=== PATIENT | male | born 1930 | race Caucasian/White ===

== ENCOUNTER 2016-10-31 14:46 | Inpatient (IN) | payer MEDICARE, BC ==
--- NOTE | 2016-10-31 15:11 | ED ---
General Adult HPI - General Chief complaint: Weakness Stated complaint: no appetite/tired Time Seen by Provider: 10/31/16 14:50 Source: patient, family, RN notes reviewed Mode of arrival: wheelchair Limitations: no limitations - History of Present Illness Initial comments: This is an 86-year-old male with past medical history significant for COPD and congestive heart failure. Patient was recently placed on steroids but has been off it for about 6-7 days. Patient comes in today because since Tuesday he's been feeling extremely weak and fatigued. Patient denies any pain. Patient denies headache patient denies numbness weakness. Patient denies any chest pain or palpitations. Patient denies any shortness of breath difficulty breathing. Patient denies abdominal pain patient denies nausea vomiting diarrhea. Patient denies any dysuria but he states there has been some urinary frequency. Patient denies any urgency. Patient denies any recent injury or trauma. Patient denies any new medications. Patient denies any fever chills or cough. - Related Data Home Medications Medication Instructions Recorded Confirmed Atenolol [Tenormin] 25 mg PO DAILY 12/09/14 10/31/16 Budesonide [Pulmicort] 0.5 mg INHALATION RT-BID 12/09/14 10/31/16 Budesonide-Formot 160-4.5 Mcg 2 puff INHALATION RT-BID 12/09/14 10/31/16 [Symbicort 160-4.5 Mcg Inhaler] Montelukast [Singulair] 10 mg PO HS 12/09/14 10/31/16 Omeprazole [PriLOSEC] 20 mg PO AC-BRKFST 12/09/14 10/31/16 Pravastatin Sodium [Pravachol] 80 mg PO HS 12/09/14 10/31/16 Tamsulosin [Flomax] 0.4 mg PO DAILY 12/09/14 10/31/16 Areds2 1 tab PO BID 10/31/16 10/31/16 Ipratropium Nebulized [Atrovent 0.5 mg INHALATION RT-BID 10/31/16 10/31/16 Nebulized] Lisinopril [Zestril] 5 mg PO HS 10/31/16 10/31/16 predniSONE See Taper PO DAILY 10/31/16 10/31/16 Allergies Allergy/AdvReac Type Severity Reaction Status Date / Time No Known Allergies Allergy Verified 10/31/16 15:27 Review of Systems ROS Statement: Those systems with pertinent positive or pertinent negative responses have been documented in the HPI. ROS Other: All systems not noted in ROS Statement are negative. Past Medical History Past Medical History: COPD, GERD/Reflux, Hypertension, Myocardial Infarction ([place] ) Additional Past Medical History / Comment(s): macular degeneration History of Any Multi-Drug Resistant Organisms: None Reported Past Surgical History: Hernia Repair Past Psychological History: No Psychological Hx Reported Smoking Status: Never smoker Past Alcohol Use History: None Reported Past Drug Use History: None Reported General Exam - General Exam Comments Initial Comments: GENERAL: Patient is well-developed and well-nourished. Patient is nontoxic and well- hydrated and is in no acute distress. ENT: Neck is soft and supple. No significant lymphadenopathy is noted. Oropharynx is clear. Moist mucous membranes. Neck has full range of motion without eliciting any pain. EYES: The sclera were anicteric and conjunctiva were pink and moist. Extraocular movements were intact and pupils were equal round and reactive to light. Eyelids were unremarkable. PULMONARY: Unlabored respirations. Good breath sounds bilaterally. No audible rales rhonchi or wheezing was noted. CARDIOVASCULAR: Patient has an irregular heartbeat. ABDOMEN: Soft and nontender with normal bowel sounds. No palpable organomegaly was noted. There is no palpable pulsatile mass. SKIN: Skin is clear with no lesions or rashes and otherwise unremarkable. NEUROLOGIC: Patient is alert and oriented x3. Cranial nerves II through XII are grossly intact. Motor and sensory are also intact. Normal speech, volume and content. Symmetrical smile. MUSCULOSKELETAL: Normal extremities with adequate strength and full range of motion. Patient has 1+ edema. LYMPHATICS: No significant lymphadenopathy is noted PSYCHIATRIC: Normal psychiatric evaluation. Normal interpersonal interactions appears functionally intact in deals appropriately with others. No signs of depression. No signs of anxiety. No delusions. No hallucinations. Limitations: no limitations Course Vital Signs 10/31/16 10/31/16 10/31/16 14:51 15:10 15:18 Temperature 98.6 F 100.4 F H Pulse Rate 88 Respiratory 20 20 Rate Blood Pressure 151/75 O2 Sat by Pulse 90 L Oximetry 10/31/16 15:54 Temperature Pulse Rate 87 Respiratory 20 Rate Blood Pressure 146/78 O2 Sat by Pulse 96 Oximetry Medical Decision Making - Medical Decision Making EKG shows possible flutter at 80 bpm QRS is 106 QT interval 36 QTC is 467. There does not appear to be any ST segment elevation or depression - Lab Data Result diagrams: 10/31/16 15:14 10/31/16 15:14 Lab Results 10/31/16 10/31/16 10/31/16 Range/Units 15:14 15:14 15:14 WBC 20.8 H (3.8-10.6) k/uL RBC 4.47 (4.30-5.90) m/uL Hgb 14.3 (13.0-17.5) gm/dL Hct 42.1 (39.0-53.0) % MCV 94.1 (80.0-100.0) fL MCH 32.1 (25.0-35.0) pg MCHC 34.1 (31.0-37.0) g/dL RDW 15.3 (11.5-15.5) % Plt Count 151 (150-450) k/uL Neutrophils % 83 % Lymphocytes % 12 % Monocytes % 4 % Eosinophils % 0 % Basophils % 0 % Neutrophils # 17.2 H (1.3-7.7) k/uL Lymphocytes # 2.4 (1.0-4.8) k/uL Monocytes # 0.8 (0-1.0) k/uL Eosinophils # 0.0 (0-0.7) k/uL Basophils # 0.0 (0-0.2) k/uL PT (9.0-12.0) sec INR (<1.1) APTT (22.0-30.0) sec Sodium 137 (137-145) mmol/L Potassium 4.4 (3.5-5.1) mmol/L Chloride 101 (98-107) mmol/L Carbon Dioxide 21 L (22-30) mmol/L Anion Gap 15 mmol/L BUN 18 (9-20) mg/dL Creatinine 0.79 (0.66-1.25) mg/dL Est GFR (MDRD) Af Amer >60 (>60 ml/min/1.73 sqM) Est GFR (MDRD) Non-Af >60 (>60 ml/min/1.73 sqM) Glucose 117 H (74-99) mg/dL Plasma Lactic Acid Chin[place] (0.7-2.0) mmol/L Calcium 8.6 (8.4-10.2) mg/dL Magnesium 1.7 (1.6-2.3) mg/dL Total Bilirubin 2.0 H (0.2-1.3) mg/dL AST 25 (17-59) U/L ALT 23 (21-72) U/L Alkaline Phosphatase 76 (38-126) U/L Total Creatine Kinase 134 (55-170) U/L CK-MB (CK-2) 1.8 (0.0-2.4) ng/mL CK-MB (CK-2) Rel Index 1.3 Troponin I 0.030 (0.000-0.034) ng/mL Total Protein 7.4 (6.3-8.2) g/dL Albumin 4.0 (3.5-5.0) g/dL TSH 2.070 (0.465-4.680) mIU/L Free T4 1.46 (0.78-2.19) ng/dL Urine Color Urine Appearance (Clear) Urine pH (5.0-8.0) Ur Specific Bee (1.001-1.035) Urine Protein (Negative) Urine Glucose (UA) (Negative) Urine Ketones (Negative) Urine Blood (Negative) Urine Nitrite (Negative) Urine Bilirubin (Negative) Urine Urobilinogen (<2.0) mg/dL Ur Leukocyte Esterase (Negative) Urine RBC (0-5) /hpf Urine WBC (0-5) /hpf Ur Squamous Epith Cells (0-4) /hpf Urine Mucus (None) /hpf 10/31/16 10/31/16 10/31/16 Range/Units 15:14 15:14 15:14 WBC (3.8-10.6) k/uL RBC (4.30-5.90) m/uL Hgb (13.0-17.5) gm/dL Hct (39.0-53.0) % MCV (80.0-100.0) fL MCH (25.0-35.0) pg MCHC (31.0-37.0) g/dL RDW (11.5-15.5) % Plt Count (150-450) k/uL Neutrophils % % Lymphocytes % % Monocytes % % Eosinophils % % Basophils % % Neutrophils # (1.3-7.7) k/uL Lymphocytes # (1.0-4.8) k/uL Monocytes # (0-1.0) k/uL Eosinophils # (0-0.7) k/uL Basophils # (0-0.2) k/uL PT 11.9 (9.0-12.0) sec INR 1.2 (<1.1) APTT 24.6 (22.0-30.0) sec Sodium (137-145) mmol/L Potassium (3.5-5.1) mmol/L Chloride (98-107) mmol/L Carbon Dioxide (22-30) mmol/L Anion Gap mmol/L BUN (9-20) mg/dL Creatinine (0.66-1.25) mg/dL Est GFR (MDRD) Af Amer (>60 ml/min/1.73 sqM) Est GFR (MDRD) Non-Af (>60 ml/min/1.73 sqM) Glucose (74-99) mg/dL Plasma Lactic Acid [place] 1.6 (0.7-2.0) mmol/L Calcium (8.4-10.2) mg/dL Magnesium (1.6-2.3) mg/dL Total Bilirubin (0.2-1.3) mg/dL AST (17-59) U/L ALT (21-72) U/L Alkaline Phosphatase (38-126) U/L Total Creatine Kinase (55-170) U/L CK-MB (CK-2) (0.0-2.4) ng/mL CK-MB (CK-2) Rel Index Troponin I (0.000-0.034) ng/mL Total Protein (6.3-8.2) g/dL Albumin (3.5-5.0) g/dL TSH (0.465-4.680) mIU/L Free T4 (0.78-2.19) ng/dL Urine Color Yellow Urine Appearance Clear (Clear) Urine pH 6.0 (5.0-8.0) Ur Specific Bee 1.015 (1.001-1.035) Urine Protein 2+ H (Negative) Urine Glucose (UA) Negative (Negative) Urine Ketones 1+ H (Negative) Urine Blood Moderate H (Negative) Urine Nitrite Negative (Negative) Urine Bilirubin Negative (Negative) Urine Urobilinogen 2.0 (<2.0) mg/dL Ur Leukocyte Esterase Negative (Negative) Urine RBC 3 (0-5) /hpf Urine WBC 2 (0-5) /hpf Ur Squamous Epith Cells <1 (0-4) /hpf Urine Mucus Rare H (None) /hpf Disposition Clinical Impression: Generalized weakness, Febrile illness, Leukocytosis Disposition: ADMITTED IP TO THIS HOSP Referrals: Seth Norman MD [Primary Care Provider] - 1-2 days Time of Disposition: 16:30
[2016-10-31] MEDS ORDERED: ACETAMINOPHEN TAB 500 MG TAB PO STA (15:20)
[2016-10-31 15:23] LABS: Basophils % (A) 0 %; CH 32.1; CHCM 34.2; Eosinophils % (A) 0 %; HCT 42.1 % (39.0-53.0); HGB 14.3 gm/dL (13.0-17.5); Luc # (Auto) 0.31; Luc % (Auto) 2; Lymphocytes # (A) 2.4 k/uL (1.0-4.8); Lymphocytes % (A) 12 %; MCH 32.1 pg (25.0-35.0); MCHC 34.1 g/dL (31.0-37.0); MCV 94.1 fL (80.0-100.0); Mean Platelet Volume 8.1; Monocytes # (A) 0.8 k/uL (0-1.0); Monocytes % (A) 4 %; Neutrophils # (A) 17.2 k/uL (1.3-7.7); Neutrophils % (A) 83 %; RBC 4.47 m/uL (4.30-5.90); RDW 15.3 % (11.5-15.5); WBC 20.8 k/uL (3.8-10.6); WBC (Perox) 19.81
[2016-10-31 15:31] LABS: INR 1.2 (<1.1); Prothrombin Time 11.9 sec (9.0-12.0)
[2016-10-31 15:32] LABS: Partial Thromboplastin Time 24.6 sec (22.0-30.0)
[2016-10-31 15:35] LABS: ALT 23 U/L (21-72); AST 25 U/L (17-59); Alkaline Phosphatase 76 U/L (38-126); Anion Gap 15 mmol/L; Blood Urea Nitrogen 18 mg/dL (9-20); Calcium 8.6 mg/dL (8.4-10.2); Carbon Dioxide 21 mmol/L (22-30); Chloride 101 mmol/L (98-107); Glucose 117 mg/dL (74-99); Magnesium 1.7 mg/dL (1.6-2.3); Non-African American GFR(MDRD) >60 (>60 ml/min/1.73 sqM); Potassium 4.4 mmol/L (3.5-5.1); Sodium 137 mmol/L (137-145); Total Protein 7.4 g/dL (6.3-8.2)
[2016-10-31 15:53] LABS: Appearance,Urine Clear (Clear); Bilirubin,Urine Negative (Negative); Glucose,Urine (UA) Negative (Negative); Ketones,Urine 1+ (Negative); Leukocyte Esterase,Urine Negative (Negative); Mucus,Urine Rare /hpf; Nitrite,Urine Negative (Negative); Particle Count 3030; Protein,Urine 2+ (Negative); RBC,Urine 3 /hpf (0-5); Specific Gravity,Urine 1.015 (1.001-1.035); Squamous Epithelial Cell,Urine <1 /hpf (0-4); UA Billing (MACRO vs. MICRO) MICRO; WBC,Urine 2 /hpf (0-5)
[2016-10-31 15:55] LABS: Creatine Kinase MB 1.8 ng/mL (0.0-2.4); Troponin I 0.03 ng/mL (0.000-0.034)
--- NOTE | 2016-10-31 16:03 | XR ---
EXAMINATION TYPE: XR chest 2V DATE OF EXAM: 10/31/2016 COMPARISON: NONE HISTORY: Shortness of breath TECHNIQUE: Frontal and lateral views of the chest are obtained. FINDINGS: Scattered senescent parenchymal changes noted. Hyperinflation compatible with COPD. Chronic pleural p arenchymal thickening unchanged from prior study. No evidence for infiltrate. No evidence for atelectasis. Heart size is stable. Mediastinal structures are stable and grossly unremarkable. No evidence for hilar prominence. Degenerative changes dorsal spine. IMPRESSION: 1. No evidence for acute pulmonary disease.
[2016-10-31] MEDS ORDERED: LEVOFLOXACIN 750MG-D5W PMX 750 MG in DEXTROSE/WATER 1 150ML.BAG IVPB STA (16:28)
[2016-10-31] MEDS ORDERED: SODIUM CHLORIDE 0.9% 1,000 ML IV ONE (16:30)
[2016-10-31 17:45] VITALS: BMI 32.2
[2016-10-31] MEDS: BUDESONIDE 0.5 MG/2 ML NEBU INHALATION SCH (19:43)
[2016-10-31] MEDS ORDERED: IPRATROPIUM-ALBUTEROL 3 ML NEB INHALATION PRN (20:00)
[2016-10-31] MEDS: IPRATROPIUM-ALBUTEROL 3 ML NEB INHALATION SCH (20:16)
[2016-10-31] MEDS: HEPARIN SODIUM,PORCINE 5,000 UNIT/ML 1 ML VIAL SQ SCH (20:58)
[2016-10-31] MEDS: PANTOPRAZOLE 40 MG/10 ML VIAL IVP SCH (20:58)
[2016-10-31] MEDS ORDERED: PRAVASTATIN SODIUM 80 MG TAB PO SCH (21:00)
[2016-10-31] MEDS ORDERED: MONTELUKAST 10 MG TAB PO SCH (21:00)
[2016-10-31] MEDS ORDERED: LISINOPRIL 5 MG TAB PO SCH (21:00)
[2016-11-01 07:27] LABS: Basophils % (A) 0 %; CHCM 33.5; Eosinophils # (A) 0.1 k/uL (0-0.7); Eosinophils % (A) 0 %; HDW 2.26; HGB 12.8 gm/dL (13.0-17.5); Luc # (Auto) 0.27; Luc % (Auto) 2; Lymphocytes # (A) 1.8 k/uL (1.0-4.8); Lymphocytes % (A) 12 %; MCH 31.6 pg (25.0-35.0); MCHC 32.9 g/dL (31.0-37.0); MCV 95.9 fL (80.0-100.0); Mean Platelet Volume 8.1; Monocytes # (A) 0.7 k/uL (0-1.0); Monocytes % (A) 5 %; Neutrophils # (A) 12.6 k/uL (1.3-7.7); Neutrophils % (A) 82 %; RBC 4.07 m/uL (4.30-5.90); RDW 15.1 % (11.5-15.5); WBC 15.5 k/uL (3.8-10.6); WBC (Perox) 15.51
[2016-11-01] MEDS ORDERED: NON-FORMULARY DRUG (Omeprazole [Prilosec] 20 MG) PO SCH (07:30)
[2016-11-01 07:38] LABS: Anion Gap 11 mmol/L; Blood Urea Nitrogen 19 mg/dL (9-20); Carbon Dioxide 22 mmol/L (22-30); Chloride 103 mmol/L (98-107); Glucose 108 mg/dL (74-99); Non-African American GFR(MDRD) >60 (>60 ml/min/1.73 sqM); Potassium 3.9 mmol/L (3.5-5.1); Sodium 136 mmol/L (137-145)
[2016-11-01] MEDS: IPRATROPIUM-ALBUTEROL 3 ML NEB INHALATION SCH ×2 (07:40→11:35)
[2016-11-01] MEDS: BUDESONIDE 0.5 MG/2 ML NEBU INHALATION SCH (07:40)
[2016-11-01] MEDS: HEPARIN SODIUM,PORCINE 5,000 UNIT/ML 1 ML VIAL SQ SCH (08:03)
[2016-11-01] MEDS: PANTOPRAZOLE 40 MG/10 ML VIAL IVP SCH (08:03)
[2016-11-01] MEDS ORDERED: predniSONE 10 MG TAB PO SCH (09:00)
[2016-11-01] MEDS ORDERED: ATENOLOL 25 MG TAB PO SCH (09:00)
[2016-11-01] MEDS ORDERED: TAMSULOSIN 0.4 MG CAP.ER.24H PO SCH (09:00)
[2016-11-01 09:17] VITALS: BP 114/57; RESP 16; TEMP 99.6
[2016-11-01 11:54] VITALS: PULSE 84
--- NOTE | 2016-11-01 13:52 | P.DS ---
Providers Date of admission: 10/31/16 16:30 Expected date of discharge: 11/01/16 Attending physician: Favio Cabrera Primary care physician: Seth Norman [facility] Course: this very pleasant gentleman admitted feeling weak and tired rundown not feeling well, making urine. Patient just completed a course of steroids for COPD exacerbation. Patient probably had an element of myopathy from steroids as he was weak in his muscles not feeling much better. Urine output had decreased. Coming doing much better. Today patient with his nephew. Critically get out of the bathroom eating rather well very keen to go home.patient clinically was felt to be dehydrated. Did well with IV fluids. White count was felt to be from an element of dehydration and steroids coming down.care was discussed in detail with the patient and his nephew the bedside questions were answered. On examination: Lungs-decreased breath sounds no crackles Psych-AO 3 Cardiovascular-first seconds are normal Discharge planning more than 35 minutes Plan - Discharge Summary New Discharge Prescriptions: Continue Montelukast [Singulair] 10 mg PO HS Budesonide [Pulmicort] 0.5 mg INHALATION RT-BID Tamsulosin [Flomax] 0.4 mg PO DAILY Pravastatin Sodium [Pravachol] 80 mg PO HS Atenolol [Tenormin] 25 mg PO DAILY Omeprazole [PriLOSEC] 20 mg PO AC-BRKFST Budesonide-Formot 160-4.5 Mcg [Symbicort 160-4.5 Mcg Inhaler] 2 puff INHALATION RT-BID Areds2 1 tab PO BID Ipratropium Nebulized [Atrovent Nebulized] 0.5 mg INHALATION RT-BID Lisinopril [Zestril] 5 mg PO HS Discontinued predniSONE See Taper PO DAILY Discharge Medication List Atenolol [Tenormin] 25 mg PO DAILY 12/09/14 [History] Budesonide [Pulmicort] 0.5 mg INHALATION RT-BID 12/09/14 [History] Budesonide-Formot 160-4.5 Mcg [Symbicort 160-4.5 Mcg Inhaler] 2 puff INHALATION RT-BID 12/09/14 [History] Montelukast [Singulair] 10 mg PO HS 12/09/14 [History] Omeprazole [PriLOSEC] 20 mg PO AC-BRKFST 12/09/14 [History] Pravastatin Sodium [Pravachol] 80 mg PO HS 12/09/14 [History] Tamsulosin [Flomax] 0.4 mg PO DAILY 12/09/14 [History] Areds2 1 tab PO BID 10/31/16 [History] Ipratropium Nebulized [Atrovent Nebulized] 0.5 mg INHALATION RT-BID 10/31/16 [ History] Lisinopril [Zestril] 5 mg PO HS 10/31/16 [History] Follow up Appointment(s)/Referral(s): Seth Norman MD [Primary Care Provider] - 3 Days Patient Instructions/Handouts: Type 2 Diabetes in Adults (DC) Discharge Disposition: HOME SELF-CARE
[2016-11-01] MEDS ORDERED: LEVOFLOXACIN 750MG-D5W PMX 750 MG in DEXTROSE/WATER 1 150ML.BAG IVPB SCH (17:00)
[2016-11-02] MEDS ORDERED: PANTOPRAZOLE 40 MG TABLET PO SCH (07:30)
== END 2016-11-01 14:46 | disposition home or self-care (01) | DRG 641 ==
LOC: EC 14:46 → 4MS4W 16:30
PROVIDERS: ADMIT Hospitalist; ATTEND Hospitalist
DX: E86.0 Dehydration (principal); G72.0 Drug-induced myopathy; I11.0 Hypertensive heart disease with heart failure; I50.9 Heart failure, unspecified; J44.9 Chronic obstructive pulmonary disease, unspecified; H35.30 Unspecified macular degeneration; I25.2 Old myocardial infarction; K21.9 Gastro-esophageal reflux disease without esophagitis; T38.0X5A Adverse effect of glucocorticoids and synthetic analogues, initial encounter; Z79.899 Other long term (current) drug therapy; Y92.009 Unspecified place in unspecified non-institutional (private) residence as the place of occurrence of the external cause
CPT/HCPCS: 36415; 71020; 80048; 80053; 81001; 82550; 82553; 83605; 83735; 84439; 84443; 84484; 85025; 85610; 85730; 87040; 87086; 93005; 94640; 99285

== ENCOUNTER 2016-11-09 11:18 | Inpatient (IN) | payer MEDICARE, BC ==
[2016-11-09] MEDS ORDERED: MAGNESIUM SULFATE-D5W PMX 1 GM in DEXTROSE/WATER 1 100ML.BAG IVPB STA (11:34)
[2016-11-09] MEDS ORDERED: methylPREDNISolone SOD SUCCI 125 MG/2 ML VIAL IV STA (11:34)
[2016-11-09] MEDS ORDERED: SODIUM CHLORIDE 0.9% 1,000 ML IV STA (11:34)
[2016-11-09] MEDS ORDERED: IPRATROPIUM-ALBUTEROL 3 ML NEB INHALATION STA (11:38)
--- NOTE | 2016-11-09 11:39 | ED ---
SOB HPI - General Stated Complaint: Low Oxygen Time Seen by Provider: 11/09/16 11:33 Source: patient, family, RN notes reviewed, old records reviewed - History of Present Illness Initial Comments: This is a 86-year-old male with a history of lung disease who barely started getting short of breath this evening when he got worse today he has a cough with minimal phlegm this is a fever this morning exertional dyspnea. His pulse ox at home was 73 his incentive spirometer was very low on his attempt to use at this morning. MD Complaint: shortness of breath, cough - Related Data Home Medications Medication Instructions Recorded Confirmed Atenolol [Tenormin] 25 mg PO DAILY 12/09/14 11/09/16 Budesonide [Pulmicort] 0.5 mg INHALATION RT-BID 12/09/14 11/09/16 Budesonide-Formot 160-4.5 Mcg 2 puff INHALATION RT-BID 12/09/14 11/09/16 [Symbicort 160-4.5 Mcg Inhaler] Montelukast [Singulair] 10 mg PO HS 12/09/14 11/09/16 Omeprazole [PriLOSEC] 20 mg PO AC-BRKFST 12/09/14 11/09/16 Pravastatin Sodium [Pravachol] 80 mg PO HS 12/09/14 11/09/16 Tamsulosin [Flomax] 0.4 mg PO DAILY 12/09/14 11/09/16 Ipratropium Nebulized [Atrovent 0.5 mg INHALATION RT-BID 10/31/16 11/09/16 Nebulized] Lisinopril [Zestril] 5 mg PO HS 10/31/16 11/09/16 Vit C/E/Zn/Coppr/Lutein/Zeaxan 1 cap PO BID 11/09/16 11/09/16 [Preservision Areds 2 Softgel] Allergies Allergy/AdvReac Type Severity Reaction Status Date / Time No Known Allergies Allergy Verified 11/09/16 13:58 Review of Systems ROS Statement: Those systems with pertinent positive or pertinent negative responses have been documented in the HPI. ROS Other: All systems not noted in ROS Statement are negative. Past Medical History Past Medical History: COPD, CVA/TIA, Diabetes Mellitus, Eye Disorder, GERD/ Reflux, Hyperlipidemia, Hypertension, Myocardial Infarction ([place]), Pneumonia, Respiratory Disorder Additional Past Medical History / Comment(s): macular degeneration, arthritis unknown type, heart cath with 2 stents approximately 2012, silent [place] Last Myocardial Infarction Date:: 2012 History of Any Multi-Drug Resistant Organisms: None Reported Past Surgical History: Heart Catheterization With Stent, Hernia Repair Past Anesthesia/Blood Transfusion Reactions: No Reported Reaction Date of Last Stent Placement:: 2012 Past Psychological History: No Psychological Hx Reported Smoking Status: Former smoker Past Alcohol Use History: Daily Additional Past Alcohol Use History / Comment(s): beer a day Past Drug Use History: None Reported - Past Family History Mother Family Medical History: Cancer General Exam - General Exam Comments Initial Comments: This is a well-developed well-nourished awake alert oriented 3 male General appearance: alert, anxious, in distress Head exam: Present: atraumatic, normocephalic, normal inspection Eye exam: Present: normal appearance, PERRL, EOMI. Absent: scleral icterus, conjunctival injection, periorbital swelling ENT exam: Present: mucous membranes dry Neck exam: Present: normal inspection. Absent: tenderness, meningismus, lymphadenopathy Respiratory exam: Present: respiratory distress, wheezes, accessory muscle use, decreased breath sounds Cardiovascular Exam: Present: regular rate, normal rhythm, normal heart sounds. Absent: systolic murmur, diastolic murmur, rubs, gallop, clicks GI/Abdominal exam: Present: soft, normal bowel sounds. Absent: distended, tenderness, guarding, rebound, rigid Extremities exam: Present: normal inspection, full ROM, normal capillary refill. Absent: tenderness, pedal edema, joint swelling, calf tenderness Back exam: Present: normal inspection Neurological exam: Present: alert, oriented X3, CN II-XII intact Psychiatric exam: Present: normal affect, normal mood Skin exam: Present: warm, dry, intact, normal color. Absent: rash Course Vital Signs 11/09/16 11/09/16 11/09/16 11:22 11:30 11:45 Temperature 100.8 F H Pulse Rate 99 Pulse Rate [ 86 87 Chemical Tester ] Respiratory 32 H 28 H 26 H Rate Blood Pressure 174/88 Blood Pressure 150/78 166/79 [Right Arm] O2 Sat by Pulse 71 L 97 99 Oximetry 11/09/16 11/09/16 11/09/16 11:48 12:00 12:15 Temperature Pulse Rate 89 97 Pulse Rate [ 83 89 Chemical Tester ] Respiratory 30 H 28 H Rate Blood Pressure Blood Pressure 148/70 164/74 [Right Arm] O2 Sat by Pulse 99 99 Oximetry 11/09/16 11/09/16 11/09/16 12:30 13:00 13:20 Temperature Pulse Rate Pulse Rate [ 87 Chemical Tester ] Respiratory 29 H 30 H Rate Blood Pressure Blood Pressure 160/74 [Right Arm] O2 Sat by Pulse 99 97 95 Oximetry 11/09/16 13:54 Temperature 99.8 F H Pulse Rate 85 Pulse Rate [ Chemical Tester ] Respiratory 15 Rate Blood Pressure 149/76 Blood Pressure [Right Arm] O2 Sat by Pulse 98 Oximetry - Reevaluation(s) Reevaluation #1: 11/09/16 14:36 Reevaluation patient reveals some improvement though he was not able tolerate nasal oxygen yet. He did develop hypoxemia when placed on nasal prongs. He was placed back on a mask. Medical Decision Making - Medical Decision Making I did discuss findings with patient family members as well as with Dr. Cabrera. Patient will be admitted for inpatient treatment of pneumonia and CHF. The initial lactic acid was within normal limits. - Lab Data Result diagrams: 11/09/16 11:40 11/09/16 11:40 Lab Results 11/09/16 11/09/16 11/09/16 Range/Units 11:40 11:40 11:40 WBC 13.7 H (3.8-10.6) k/uL RBC 3.93 L (4.30-5.90) m/uL Hgb 12.5 L (13.0-17.5) gm/dL Hct 36.4 L (39.0-53.0) % MCV 92.7 (80.0-100.0) fL MCH 31.7 (25.0-35.0) pg MCHC 34.2 (31.0-37.0) g/dL RDW 15.3 (11.5-15.5) % Plt Count 308 D (150-450) k/uL Neutrophils % 84 % Lymphocytes % 11 % Monocytes % 4 % Eosinophils % 0 % Basophils % 0 % Neutrophils # 11.5 H (1.3-7.7) k/uL Lymphocytes # 1.5 (1.0-4.8) k/uL Monocytes # 0.5 (0-1.0) k/uL Eosinophils # 0.0 (0-0.7) k/uL Basophils # 0.0 (0-0.2) k/uL PT (9.0-12.0) sec INR (<1.1) APTT (22.0-30.0) sec Sodium 139 (137-145) mmol/L Potassium 3.5 (3.5-5.1) mmol/L Chloride 98 (98-107) mmol/L Carbon Dioxide 24 (22-30) mmol/L Anion Gap 17 mmol/L BUN 15 (9-20) mg/dL Creatinine 0.71 (0.66-1.25) mg/dL Est GFR (MDRD) Af Amer >60 (>60 ml/min/1.73 sqM) Est GFR (MDRD) Non-Af >60 (>60 ml/min/1.73 sqM) Glucose 124 H (74-99) mg/dL Plasma Lactic Acid [place] (0.7-2.0) mmol/L Calcium 7.9 L (8.4-10.2) mg/dL Magnesium 1.8 (1.6-2.3) mg/dL Total Bilirubin 1.2 (0.2-1.3) mg/dL AST 108 H (17-59) U/L ALT 70 (21-72) U/L Alkaline Phosphatase 102 (38-126) U/L Total Creatine Kinase 73 (55-170) U/L CK-MB (CK-2) 1.1 (0.0-2.4) ng/mL CK-MB (CK-2) Rel Index 1.5 Troponin I 0.052 H* (0.000-0.034) ng/mL NT-Pro-B Natriuret Pep pg/mL Total Protein 6.7 (6.3-8.2) g/dL Albumin 3.2 L (3.5-5.0) g/dL Urine Color Urine Appearance (Clear) Urine pH (5.0-8.0) Ur Specific Hopkins (1.001-1.035) Urine Protein (Negative) Urine Glucose (UA) (Negative) Urine Ketones (Negative) Urine Blood (Negative) Urine Nitrite (Negative) Urine Bilirubin (Negative) Urine Urobilinogen (<2.0) mg/dL Ur Leukocyte Esterase (Negative) Urine RBC (0-5) /hpf Urine WBC (0-5) /hpf Urine Bacteria (None) /hpf Granular Casts (0) /lpf Urine Mucus (None) /hpf 11/09/16 11/09/16 11/09/16 Range/Units 11:40 11:40 11:40 WBC (3.8-10.6) k/uL RBC (4.30-5.90) m/uL Hgb (13.0-17.5) gm/dL Hct (39.0-53.0) % MCV (80.0-100.0) fL MCH (25.0-35.0) pg MCHC (31.0-37.0) g/dL RDW (11.5-15.5) % Plt Count (150-450) k/uL Neutrophils % % Lymphocytes % % Monocytes % % Eosinophils % % Basophils % % Neutrophils # (1.3-7.7) k/uL Lymphocytes # (1.0-4.8) k/uL Monocytes # (0-1.0) k/uL Eosinophils # (0-0.7) k/uL Basophils # (0-0.2) k/uL PT 13.4 H (9.0-12.0) sec INR 1.4 (<1.1) APTT 26.5 (22.0-30.0) sec Sodium (137-145) mmol/L Potassium (3.5-5.1) mmol/L Chloride (98-107) mmol/L Carbon Dioxide (22-30) mmol/L Anion Gap mmol/L BUN (9-20) mg/dL Creatinine (0.66-1.25) mg/dL Est GFR (MDRD) Af Amer (>60 ml/min/1.73 sqM) Est GFR (MDRD) Non-Af (>60 ml/min/1.73 sqM) Glucose (74-99) mg/dL Plasma Lactic Acid [place] 1.3 (0.7-2.0) mmol/L Calcium (8.4-10.2) mg/dL Magnesium (1.6-2.3) mg/dL Total Bilirubin (0.2-1.3) mg/dL AST (17-59) U/L ALT (21-72) U/L Alkaline Phosphatase (38-126) U/L Total Creatine Kinase (55-170) U/L CK-MB (CK-2) (0.0-2.4) ng/mL CK-MB (CK-2) Rel Index Troponin I (0.000-0.034) ng/mL NT-Pro-B Natriuret Pep 3260 pg/mL Total Protein (6.3-8.2) g/dL Albumin (3.5-5.0) g/dL Urine Color Urine Appearance (Clear) Urine pH (5.0-8.0) Ur Specific Hopkins (1.001-1.035) Urine Protein (Negative) Urine Glucose (UA) (Negative) Urine Ketones (Negative) Urine Blood (Negative) Urine Nitrite (Negative) Urine Bilirubin (Negative) Urine Urobilinogen (<2.0) mg/dL Ur Leukocyte Esterase (Negative) Urine RBC (0-5) /hpf Urine WBC (0-5) /hpf Urine Bacteria (None) /hpf Granular Casts (0) /lpf Urine Mucus (None) /hpf 11/09/16 Range/Units 13:01 WBC (3.8-10.6) k/uL RBC (4.30-5.90) m/uL Hgb (13.0-17.5) gm/dL Hct (39.0-53.0) % MCV (80.0-100.0) fL MCH (25.0-35.0) pg MCHC (31.0-37.0) g/dL RDW (11.5-15.5) % Plt Count (150-450) k/uL Neutrophils % % Lymphocytes % % Monocytes % % Eosinophils % % Basophils % % Neutrophils # (1.3-7.7) k/uL Lymphocytes # (1.0-4.8) k/uL Monocytes # (0-1.0) k/uL Eosinophils # (0-0.7) k/uL Basophils # (0-0.2) k/uL PT (9.0-12.0) sec INR (<1.1) APTT (22.0-30.0) sec Sodium (137-145) mmol/L Potassium (3.5-5.1) mmol/L Chloride (98-107) mmol/L Carbon Dioxide (22-30) mmol/L Anion Gap mmol/L BUN (9-20) mg/dL Creatinine (0.66-1.25) mg/dL Est GFR (MDRD) Af Amer (>60 ml/min/1.73 sqM) Est GFR (MDRD) Non-Af (>60 ml/min/1.73 sqM) Glucose (74-99) mg/dL Plasma Lactic Acid [place] (0.7-2.0) mmol/L Calcium (8.4-10.2) mg/dL Magnesium (1.6-2.3) mg/dL Total Bilirubin (0.2-1.3) mg/dL AST (17-59) U/L ALT (21-72) U/L Alkaline Phosphatase (38-126) U/L Total Creatine Kinase (55-170) U/L CK-MB (CK-2) (0.0-2.4) ng/mL CK-MB (CK-2) Rel Index Troponin I (0.000-0.034) ng/mL NT-Pro-B Natriuret Pep pg/mL Total Protein (6.3-8.2) g/dL Albumin (3.5-5.0) g/dL Urine Color Yellow Urine Appearance Cloudy (Clear) Urine pH 5.5 (5.0-8.0) Ur Specific Hopkins 1.021 (1.001-1.035) Urine Protein 2+ H (Negative) Urine Glucose (UA) Negative (Negative) Urine Ketones 1+ H (Negative) Urine Blood Small H (Negative) Urine Nitrite Negative (Negative) Urine Bilirubin Negative (Negative) Urine Urobilinogen 4.0 (<2.0) mg/dL Ur Leukocyte Esterase Negative (Negative) Urine RBC 1 (0-5) /hpf Urine WBC 2 (0-5) /hpf Urine Bacteria Rare H (None) /hpf Granular Casts 5 (0) /lpf Urine Mucus Occasional H (None) /hpf - EKG Data -: EKG Interpreted by Me (Atrial fibrillation with a rate of 91 QRS 110 daily since QTC of 412/506 se) EKG shows normal: sinus rhythm - Radiology Data Radiology results: report reviewed (I did review the x-ray and report evidence of increased basilar markings consistent with pneumonia and atelectasis also small pleural effusions noted.), image reviewed Critical Care Time Critical Care Time: Yes Critical Care Time: 33 minutes of critical care time which includes the initial history physical and monitoring the patient labs x-rays reevaluation patient responsive therapy. Discussed with patient family and Dr. Cabrera. Admission orders and documentation the above. Review of old charts. Disposition Clinical Impression: Pneumonia, Congestive heart failure, Febrile illness, acute, Hypoxemia Disposition: ADMITTED IP TO THIS [facility] Condition: Stable Referrals: Seth Norman MD [Primary Care Provider] - 1-2 days
[2016-11-09] MEDS ORDERED: SODIUM CHLORIDE 0.9% 500 ML IV ONE (11:51)
[2016-11-09] MEDS ORDERED: SODIUM CHLORIDE 0.9% 1,000 ML IV ONE (11:52)
[2016-11-09 11:56] LABS: Basophils % (A) 0 %; CH 31.1; CHCM 33.7; Eosinophils % (A) 0 %; HCT 36.4 % (39.0-53.0); HDW 2.48; HGB 12.5 gm/dL (13.0-17.5); Luc # (Auto) 0.23; Luc % (Auto) 2; Lymphocytes # (A) 1.5 k/uL (1.0-4.8); Lymphocytes % (A) 11 %; MCH 31.7 pg (25.0-35.0); MCHC 34.2 g/dL (31.0-37.0); MCV 92.7 fL (80.0-100.0); Mean Platelet Volume 8.5; Monocytes # (A) 0.5 k/uL (0-1.0); Monocytes % (A) 4 %; Neutrophils # (A) 11.5 k/uL (1.3-7.7); Neutrophils % (A) 84 %; RBC 3.93 m/uL (4.30-5.90); RDW 15.3 % (11.5-15.5); WBC 13.7 k/uL (3.8-10.6); WBC (Perox) 12.65
[2016-11-09 12:10] LABS: ALT 70 U/L (21-72); AST 108 U/L (17-59); Alkaline Phosphatase 102 U/L (38-126); Anion Gap 17 mmol/L; Blood Urea Nitrogen 15 mg/dL (9-20); Calcium 7.9 mg/dL (8.4-10.2); Carbon Dioxide 24 mmol/L (22-30); Chloride 98 mmol/L (98-107); Glucose 124 mg/dL (74-99); INR 1.4 (<1.1); Magnesium 1.8 mg/dL (1.6-2.3); Non-African American GFR(MDRD) >60 (>60 ml/min/1.73 sqM); Partial Thromboplastin Time 26.5 sec (22.0-30.0); Potassium 3.5 mmol/L (3.5-5.1); Prothrombin Time 13.4 sec (9.0-12.0); Sodium 139 mmol/L (137-145); Total Bilirubin 1.2 mg/dL (0.2-1.3); Total Protein 6.7 g/dL (6.3-8.2)
--- NOTE | 2016-11-09 12:30 | XR ---
EXAMINATION TYPE: XR chest 2V DATE OF EXAM: 11/09/2016 COMPARISON: Chest x-ray October 31, 2016. Older x-ray October 03, 2012 HISTORY: Shortness of breath TECHNIQUE: Frontal and lateral views of the chest are obtained. FINDINGS: The osseous structures are intact. Cardiac silhouette size is stable and upper limits o f normal with atherosclerotic thoracic aorta. There are small bilateral pleural effusions with increa sed left lateral component redemonstrated may reflect simple effusion and/or pleural thickening. Ther e is associated patchy bibasilar atelectasis and/or infiltrate. Left heart border is silhouetted but this is unchanged from 2013 study There is background chronic parenchymal change seen better on more remote studies. IMPRESSION: Chronic parenchymal fibrosis with small bilateral pleural effusions and associated patch y bibasilar atelectasis and/or infiltrate. No significant change from most recent chest x-ray.
[2016-11-09 12:35] LABS: Creatine Kinase MB 1.1 ng/mL (0.0-2.4)
[2016-11-09 12:36] LABS: Troponin I 0.052 ng/mL (0.000-0.034)
[2016-11-09 13:46] LABS: Appearance,Urine Cloudy (Clear); Bacteria,Urine Rare /hpf; Bilirubin,Urine Negative (Negative); Glucose,Urine (UA) Negative (Negative); Granular Casts,Urine 5 /lpf (0); Ketones,Urine 1+ (Negative); Leukocyte Esterase,Urine Negative (Negative); Mucus,Urine Occasional /hpf; Nitrite,Urine Negative (Negative); PH, Urine 5.5 (5.0-8.0); Particle Count 9784; Protein,Urine 2+ (Negative); RBC,Urine 1 /hpf (0-5); Specific Gravity,Urine 1.021 (1.001-1.035); UA Billing (MACRO vs. MICRO) MICRO; WBC,Urine 2 /hpf (0-5)
[2016-11-09] MEDS ORDERED: FUROSEMIDE 10 MG/ML 4 ML VIAL IV STA (13:54)
[2016-11-09] MEDS ORDERED: PNEUMONIA PROTOCOL UTILIZED 1 EACH MISC PO PRN (14:40)
[2016-11-09] MEDS ORDERED: AZITHROMYCIN 500 MG in SODIUM CHLORIDE 0.9% 250 ML IVPB STA (14:40)
[2016-11-09] MEDS: SODIUM CHLORIDE 0.9% 1,000 ML IV SCH (15:10)
[2016-11-09] MEDS ORDERED: IPRATROPIUM-ALBUTEROL 3 ML NEB INHALATION SCH (16:00)
[2016-11-09] MEDS: IPRATROPIUM-ALBUTEROL 3 ML NEB INHALATION SCH ×2 (16:30→20:39)
[2016-11-09] MEDS: NITROGLYCERIN OINT 1 INCH/GM PACKET TOPICAL SCH ×2 (17:25→23:21)
[2016-11-09 20:46] LABS: Glucose,Whole Blood 206 mg/dL (75-99)
[2016-11-09] MEDS ORDERED: IPRATROPIUM-ALBUTEROL 3 ML NEB INHALATION PRN (20:48)
[2016-11-09] MEDS ORDERED: FUROSEMIDE 10 MG/ML 4 ML VIAL IV SCH (21:00)
[2016-11-09] MEDS: PRAVASTATIN SODIUM 80 MG TAB PO SCH (21:06)
[2016-11-09] MEDS: MONTELUKAST 10 MG TAB PO SCH (21:06)
[2016-11-09] MEDS: LISINOPRIL 5 MG TAB PO SCH (21:06)
[2016-11-09] MEDS: VIT A,C & E-LUTEIN-MINERALS 1 EACH TAB PO SCH (21:06)
--- NOTE | 2016-11-09 21:32 | P.HPIM ---
History of Present Illness H&P Date: 11/09/16 Chief Complaint: Short of breath This is a pleasant 86-year-old patient of Dr. Norwood. Patient chronic stable medical conditions include coronary artery disease with stent, diabetes, GERD, hyperlipidemia, hypertension, osteoarthritis, patient has left hand weakness from prior stroke, BPH. One of patient's son is at the bedside. The patient is quite a bit short of breath, question sweat, and he's not sure why he is here. Not really able to give much of history. Review of Systems Review of systems cannot really be done as patient not able to give much of a history is rather tired somewhat delirious Past Medical History Past Medical History: Coronary Artery Disease (CAD), Cancer, COPD, CVA/TIA, Diabetes Mellitus, Eye Disorder, GERD/Reflux, Hyperlipidemia, Hypertension, [place]ocardial Infarction ([place]), Osteoarthritis ([place]), Pneumonia, Prostate Disorder, Respiratory Disorder Additional Past Medical History / Comment(s): [place], CVA with L hand weakness, bladder cancer with surgery, "borderlline" diabetes, BPH, L eye macular degeneration, Last Myocardial Infarction Date:: 2006 History of Any Multi-Drug Resistant Organisms: None Reported Past Surgical History: Heart Catheterization With Stent, Hernia Repair Additional Past Surgical History / Comment(s): 2006 PCI with stents, bladder surgery for cancer, bilateral cataract removal. Past Anesthesia/Blood Transfusion Reactions: No Reported Reaction Date of Last Stent Placement:: 2012 Smoking Status: Former smoker Additional History: Patient is , uses a cane, smoked for 33 years stop in , drinks about 1 beer a day - Past Family History Mother Family Medical History: Cancer Additional Family Medical History / Comment(s): Mother at the age of 39 yrs from cancer-pt does not recall what type. Father Family Medical History: No Reported History Additional Family Medical History / Comment(s): Father at the age of 85yrs. Medications and Allergies Home Medications Medication Instructions Recorded Confirmed Type Atenolol [Tenormin] 25 mg PO DAILY 12/09/14 11/09/16 History Budesonide [Pulmicort] 0.5 mg INHALATION RT-BID 12/09/14 11/09/16 History Budesonide-Formot 160-4.5 Mcg 2 puff INHALATION RT-BID 12/09/14 11/09/16 History [Symbicort 160-4.5 Mcg Inhaler] Montelukast [Singulair] 10 mg PO HS 12/09/14 11/09/16 History Omeprazole [PriLOSEC] 20 mg PO AC-BRKFST 12/09/14 11/09/16 History Pravastatin Sodium [Pravachol] 80 mg PO HS 12/09/14 11/09/16 History Tamsulosin [Flomax] 0.4 mg PO DAILY 12/09/14 11/09/16 History Ipratropium Nebulized [Atrovent 0.5 mg INHALATION RT-BID 10/31/16 11/09/16 History Nebulized] Lisinopril [Zestril] 5 mg PO HS 10/31/16 11/09/16 History Vit C/E/Zn/Coppr/Lutein/Zeaxan 1 cap PO BID 11/09/16 11/09/16 History [Preservision Areds 2 Softgel] Allergies Allergy/AdvReac Type Severity Reaction Status Date / Time No Known Allergies Allergy Verified 11/09/16 13:58 Physical Exam Vitals: Vital Signs VITAL SIGNS: 100.8, 99, 32, 174/88, repeat 150/78, 71% on room air GENERAL: Average built, laying in bed lethargic drenched in sweat somewhat delirious. EYES: Pupils equal. Conjunctiva normal. HEENT: External appearance of nose and ears normal, oral cavity grossly dry. NECK: JVD not raised; masses not palpable. HEART: First and second heart sounds are normal; no edema. LUNGS: Respiratory rate increased, coarse breath sounds especially on the left side. ABDOMEN: Soft, nontender, liver spleen not palpable, no masses palpable. LYMPHATICS: No lymph nodes palpable in the axilla and neck. PSYCH: [Lethargic, tired only able to answer simple questions, dozes off l. NEUROLOGICAL: Cranial nerves grossly intact; no facial asymmetry, power and sensation grossly intact. Results CBC & Chem 7: 11/09/16 11:40 11/09/16 11:40 Labs: Abnormal Lab Results - Last 24 Hours (Table) White count 30.7, hemoglobin 12.5, potassium 3.5 troponin 0.05 to Chest [id number]-[id number] show some coarse changes and infiltrates Assessment and Plan Plan: Assessment: -Left sided pneumonia multilobar, suspected gram-negative organism, causing sepsis on presentation, causing delirium -Coronary artery disease with history of stent -COPD exacerbation acute, in an ex-smoker -Diabetes mellitus type II on oral hypoglycemics -GERD -Hyperlipidemia -essential hypertension- -primary osteoarthritis multiple joints -Left hand weakness from all stroke -BPH -Troponin leak from hemodynamic mismatch, not acute [place] Plan: Patient started on antibiotics in form of IV ceftriaxone and Zithromax. Home medications were resumed. Patient given IV fluids. Overall prognosis is guarded. Add bronchodilators. Aspiration precautions.
[2016-11-10] MEDS: NITROGLYCERIN OINT 1 INCH/GM PACKET TOPICAL SCH ×4 (05:21→22:57)
[2016-11-10] MEDS: PANTOPRAZOLE 40 MG TABLET PO SCH (07:04)
[2016-11-10] MEDS ORDERED: IPRATROPIUM-ALBUTEROL 3 ML NEB INHALATION SCH ×2 (08:00→22:00)
--- NOTE | 2016-11-10 08:13 | XR ---
EXAMINATION TYPE: XR chest 2V DATE OF EXAM: 11/10/2016 COMPARISON: Prior chest x-ray 11/09/2016 HISTORY: Pneumonia TECHNIQUE: Frontal and lateral views of the chest are obtained. FINDINGS: Prominent lung volumes are again noted. Pleural parenchymal changes are stable. Heart size difficult to assess but may be enlarged. Apical pleural thickening again noted left greater than rig ht. Arthropathy noted in the shoulders, cervical spine. IMPRESSION: No acute cardiopulmonary process. No significant interval change. Difficult to exclude e ffusion versus chronic pleural reaction, interstitial lung disease.
[2016-11-10] MEDS: ENOXAPARIN 40 MG/0.4 ML SYRINGE SQ SCH (08:42)
[2016-11-10] MEDS: ATENOLOL 25 MG TAB PO SCH (08:43)
[2016-11-10] MEDS: VIT A,C & E-LUTEIN-MINERALS 1 EACH TAB PO SCH ×2 (08:44→21:03)
[2016-11-10] MEDS ORDERED: TAMSULOSIN 0.4 MG CAP.ER.24H PO SCH (09:00)
--- NOTE | 2016-11-10 10:16 | P.CRDCN ---
History of Present Illness Consult date: 11/10/16 Requesting physician: Favio Cabrera Consult reason: shortness of breath Chief complaint: Shortness of breath History of present illness: This is a pleasant 86-year-old gentleman who follows regularly with Dr. LLOYD Costello in the office. He has a known history of coronary artery disease with prior LAD stenting, hypertension, hyperlipidemia, history of intracranial bleed Ammann who presents to the hospital with symptoms of progressively worsening shortness of breath with associated productive cough of yellowish- green sputum. Mild fever. Apparently his pulse ox was checked at home and was noted to be in the low 70s as well. He denies any chest discomfort. EKG shows atrial flutter with nonspecific ST-T wave changes recent echocardiogram with Doppler study was performed in October 2015 which revealed an ejection fraction of 50% with inferior basal and mild inferior hypokinesia. Chest x-ray reveals chronic parenchymal fibrosis with small bilateral pleural effusions and patchy bibasilar atelectasis and/or infiltrate. Temperature on arrival here 100.8, blood pressure 174/80, heart rate in the 90s, 71% on room air. Blood pressure this morning 129/60, heart rate in the 70s, temperature 96.9, 100% on 8 L high flow. White blood cell count 13.7, hemoglobin 12.5, platelet count 308. Potassium 3.5, BUN 15, creatinine 0.7. Magnesium level I.8. BNP level 3260, troponin 0.052. At the time of my examination this morning, patient continues to have productive cough. Denies chest pain. He is currently on IV antibiotics for treatment for pneumonia. He also did receive a one-time dose of IV Lasix in the emergency room. IV steroids have also been administered. Past Medical History Past Medical History: Coronary Artery Disease (CAD), Cancer, COPD, CVA/TIA, Diabetes Mellitus, Eye Disorder, GERD/Reflux, Hyperlipidemia, Hypertension, Myocardial Infarction ([place]), Osteoarthritis (OA), Pneumonia, Prostate Disorder, Respiratory Disorder Additional Past Medical History / Comment(s): [place] in 2006, CVA with L hand weakness, bladder cancer with surgery, "borderlline" diabetes, BPH, L eye macular degeneration, Last Myocardial Infarction Date:: 2006 History of Any Multi-Drug Resistant Organisms: None Reported Past Surgical History: Heart Catheterization With Stent, Hernia Repair Additional Past Surgical History / Comment(s): 2007 PCI with stents, bladder surgery for cancer, bilateral cataract removal. Past Anesthesia/Blood Transfusion Reactions: No Reported Reaction Date of Last Stent Placement:: 2012 Smoking Status: Former smoker - Past Family History Mother Family Medical History: Cancer Additional Family Medical History / Comment(s): Mother at the age of 39 yrs from cancer-pt does not recall what type. Father Family Medical History: No Reported History Additional Family Medical History / Comment(s): Father at the age of 85yrs. Medications and Allergies Home Medications Medication Instructions Recorded Confirmed Type Atenolol [Tenormin] 25 mg PO DAILY 12/09/14 11/09/16 History Budesonide [Pulmicort] 0.5 mg INHALATION RT-BID 12/09/14 11/09/16 History Budesonide-Formot 160-4.5 Mcg 2 puff INHALATION RT-BID 12/09/14 11/09/16 History [Symbicort 160-4.5 Mcg Inhaler] Montelukast [Singulair] 10 mg PO HS 12/09/14 11/09/16 History Omeprazole [PriLOSEC] 20 mg PO AC-BRKFST 12/09/14 11/09/16 History Pravastatin Sodium [Pravachol] 80 mg PO HS 12/09/14 11/09/16 History Tamsulosin [Flomax] 0.4 mg PO DAILY 12/09/14 11/09/16 History Ipratropium Nebulized [Atrovent 0.5 mg INHALATION RT-BID 10/31/16 11/09/16 History Nebulized] Lisinopril [Zestril] 5 mg PO HS 10/31/16 11/09/16 History Vit C/E/Zn/Coppr/Lutein/Zeaxan 1 cap PO BID 11/09/16 11/09/16 History [Preservision Areds 2 Softgel] Allergies Allergy/AdvReac Type Severity Reaction Status Date / Time No Known Allergies Allergy Verified 11/09/16 13:58 Physical Exam Vitals: Vital Signs Temp Pulse Pulse Resp BP BP Pulse Ox 11/10/16 08:59 88 11/10/16 08:00 96.9 F L 71 18 129/65 100 11/10/16 04:00 96.7 F L 74 18 137/69 95 11/10/16 00:00 97.0 F L 92 20 134/64 96 11/09/16 21:03 84 11/09/16 20:43 99 11/09/16 20:40 84 11/09/16 20:00 96.6 F L 86 20 158/74 96 11/09/16 16:48 85 11/09/16 16:33 85 97 11/09/16 16:00 98.9 F 83 21 141/66 98 11/09/16 15:12 99.5 F 87 26 H 147/68 99 11/09/16 13:54 99.8 F H 85 29 H 149/76 98 11/09/16 13:20 30 H 95 11/09/16 13:00 97 11/09/16 12:30 87 29 H 160/74 99 11/09/16 12:15 89 28 H 164/74 99 11/09/16 12:00 97 83 30 H 148/70 99 11/09/16 11:48 89 11/09/16 11:45 87 26 H 166/79 99 11/09/16 11:30 86 28 H 150/78 97 11/09/16 11:22 100.8 F H 99 32 H 174/88 71 L Intake and Output 11/09/16 11/10/16 11/10/16 22:59 06:59 14:59 Intake Total 490 220 Output Total 975 600 Balance -485 -380 Intake: IV 220 Sodium Chloride 0.9% 1, 220 000 ml @ 20 mls/hr IV . Q24H ROSIE Rx#:[id number] Amount of Fluid Infused ( 100 ml) Intake, IV Titration 390 Amount Azithromycin 500 mg In 250 Sodium Chloride 0.9% 250 ml @ 125 mls/hr IVPB ONCE STA Rx#:[id number] Sodium Chloride 0.9% 1, 40 000 ml @ 20 mls/hr IV . Q24H ROSIE Rx#:[id number] cefTRIAXone 1,000 mg In 100 Sodium Chloride 0.9% 50 ml @ 100 mls/hr IVPB Q24H ROSIE Rx#:[id number] Output: Urine 975 600 Other: Voiding Method Urinal Urinal Diaper Diaper Incontinent Incontinent # Voids 1 3 Weight 80.3 kg PHYSICAL EXAMINATION: HEENT: Head is atraumatic, normocephalic. Pupils equal, round. Neck is supple. There is no elevated jugular venous pressure. HEART EXAMINATION: S1 and S2 irregularly irregular CHEST EXAMINATION: Lungs reveal scattered coarse wheezes throughout with decreased air exchange. ABDOMEN: Soft, nontender. Bowel sounds are heard. No organomegaly noted. EXTREMITIES: 2+ peripheral pulses with no evidence of peripheral edema and no calf tenderness noted. NEUROLOGIC patient is awake, alert and oriented -2. . Results 11/09/16 11:40 11/09/16 11:40 Cardiac Enzymes 11/09/16 11/09/16 Range/Units 11:40 11:40 AST 108 H (17-59) U/L CK-MB (CK-2) 1.1 (0.0-2.4) ng/mL Troponin I 0.052 H* (0.000-0.034) ng/mL Coagulation 11/09/16 Range/Units 11:40 PT 13.4 H (9.0-12.0) sec APTT 26.5 (22.0-30.0) sec CBC 11/09/16 Range/Units 11:40 WBC 13.7 H (3.8-10.6) k/uL RBC 3.93 L (4.30-5.90) m/uL Hgb 12.5 L (13.0-17.5) gm/dL Hct 36.4 L (39.0-53.0) % Plt Count 308 D (150-450) k/uL Comprehensive Metabolic Panel 11/09/16 Range/Units 11:40 Sodium 139 (137-145) mmol/L Potassium 3.5 (3.5-5.1) mmol/L Chloride 98 (98-107) mmol/L Carbon Dioxide 24 (22-30) mmol/L BUN 15 (9-20) mg/dL Creatinine 0.71 (0.66-1.25) mg/dL Glucose 124 H (74-99) mg/dL Calcium 7.9 L (8.4-10.2) mg/dL AST 108 H (17-59) U/L ALT 70 (21-72) U/L Alkaline Phosphatase 102 (38-126) U/L Total Protein 6.7 (6.3-8.2) g/dL Albumin 3.2 L (3.5-5.0) g/dL Current Medications Generic Name Dose Route Start Last Admin Trade Name Freq PRN Reason Stop Dose Admin Albuterol/Ipratropium 3 ml 11/09/16 20:48 11/10/16 08:56 Duoneb 0.5 Mg-3 Mg/3 Ml Soln INHALATION 3 ml RT-Q2H PRN Administration Shortness Of Breath Or Wheezing Albuterol/Ipratropium 3 ml 11/10/16 22:00 Duoneb 0.5 Mg-3 Mg/3 Ml Soln INHALATION RT-Q4H ROSIE Atenolol 25 mg 11/10/16 09:00 11/10/16 08:43 Tenormin PO 25 mg DAILY ROSIE Administration Azithromycin 500 mg 11/10/16 16:00 Zithromax PO DAILY@1600 ROSIE Enoxaparin Sodium 40 mg 11/10/16 09:00 11/10/16 08:42 Lovenox SQ 40 mg DAILY ROSIE Administration Ceftriaxone Sodium 1,000 mg/ 50 mls @ 100 mls/hr 11/10/16 14:00 Sodium Chloride IVPB Q24H ROSIE Sodium Chloride 1,000 mls @ 20 mls/hr 11/09/16 14:45 11/09/16 15:10 Saline 0.9% IV 20 mls/hr .Q24H ROSIE Administration Lisinopril 5 mg 11/09/16 21:00 11/09/16 21:06 Zestril PO 5 mg HS ROSIE Administration Miscellaneous Information 1 each 11/09/16 14:40 Pneumonia Protocol Utilized PO ONCE PRN Per Protocol Montelukast Sodium 10 mg 11/09/16 21:00 11/09/16 21:06 Singulair PO 10 mg HS ROSIE Administration Multivitamins/Minerals 1 each 11/09/16 21:00 11/10/16 08:44 Ivite PO 1 each BID ROSIE Administration Nitroglycerin 1 inch 11/09/16 18:00 11/10/16 05:21 Nitro-Bid Oint TOPICAL Not Given Q6HR ROSIE Pantoprazole Sodium 40 mg 11/10/16 07:30 11/10/16 07:04 Protonix PO 40 mg AC-BRKFST ROSIE Administration Pravastatin Sodium 80 mg 11/09/16 21:00 11/09/16 21:06 Pravachol PO 80 mg HS ROSIE Administration Tamsulosin HCl 0.4 mg 11/10/16 21:00 Flomax PO HS ROSIE Intake and Output 11/09/16 11/10/16 11/10/16 22:59 06:59 14:59 Intake Total 490 220 Output Total 975 600 Balance -485 -380 Intake: IV 220 Sodium Chloride 0.9% 1, 220 000 ml @ 20 mls/hr IV . Q24H ROSIE Rx#:[id number] Amount of Fluid Infused ( 100 ml) Intake, IV Titration 390 Amount Azithromycin 500 mg In 250 Sodium Chloride 0.9% 250 ml @ 125 mls/hr IVPB ONCE STA Rx#:[id number] Sodium Chloride 0.9% 1, 40 000 ml @ 20 mls/hr IV . Q24H ROSIE Rx#:[id number] cefTRIAXone 1,000 mg In 100 Sodium Chloride 0.9% 50 ml @ 100 mls/hr IVPB Q24H ROSIE Rx#:[id number] Output: Urine 975 600 Other: Voiding Method Urinal Urinal Diaper Diaper Incontinent Incontinent # Voids 1 3 Weight 80.3 kg 11/09/16 11:40 11/09/16 11:40 EKG Interpretations (text) EKG shows atrial flutter with a controlled ventricular response. Assessment and Plan Plan: Assessment and plan #1 symptoms of progressive shortness of breath with associated productive cough of yellow to green sputum. Positive associated fever and suggestion of infiltrate on chest x-ray. Patient is currently on IV antibiotics for treatment of pneumonia, he also received IV steroids. #2 mild congestive cardiac failure, likely diastolic in nature, acute and chronic. #3 atrial flutter, appears to be new diagnosis, patient is currently on Lovenox. #4 known history of coronary artery disease with prior LAD stenting, patient also has known RCA occlusion and 50% stenosis to the circumflex by heart catheterization performed in 2006 #5 hypertension #6 hyperlipidemia #7 prior smoking history #8 prior intracranial bleed Plan We will obtain an echocardiogram with Doppler study. Most recent echo was performed in the office in October 2015 which revealed an ejection fraction of 50% with inferior basal and mild inferior hypokinesia. Once the son is present we will also discuss the need for anticoagulation for stroke prevention. Obtain free T4 and TSH level. Further recommendations to follow. DNP note has been reviewed, I agree with a documented findings and plan of care. Patient was seen and examined.
--- NOTE | 2016-11-10 12:21 | ECHOF ---
Referral Reason:sob MEASUREMENTS -------- HEIGHT: 167.6 cm WEIGHT: 80.3 kg BP: 129/65 RVIDd: 2.9 cm (< 3.3) IVSd: 1.3 cm (0.6 - 1.1) LVIDd: 4.1 cm (3.9 - 5.3) LVPWd: 1.3 cm (0.6 - 1.1) IVSs: 1.7 cm LVIDs: 2.8 cm LVPWs: 1.5 cm LA Diam: 3.6 cm (2.7 - 3.8) Ao Diam: 3.2 cm (2.0 - 3.7) AV Cusp: 2.2 cm (1.5 - 2.6) MV EXCURSION: 20.174 mm (> 18.000) MV EF SLOPE: 110 mm/s (70 - 150) EPSS: 0.1 cm RAP: 5.00 mmHg RVSP: 36.22 mmHg FINDINGS -------- Atrial fibrillation. This was a technically difficult study with suboptimal apical views. There is mild concentric left ventricular hypertrophy. Overall left ventricular systolic function is normal with, an EF between 55 - 60 %. The right ventricle is normal in size. The left atrial size is normal. The right atrium is normal in size. 1.5mg of Definity was utilized for enhancement of images There is mild aortic valve sclerosis. Mild mitral annular calcification present. There is trace mitral regurgitation. Mild tricuspid regurgitation present. There is mild pulmonary hypertension. The right ventricular systolic pressure, as measured by Doppler, is 36.22mmHg. The pulmonic valve was not well visualized. The aortic root size is normal. IVC Not well visulized. There is no pericardial effusion. CONCLUSIONS -------- 1. Atrial fibrillation. 2. Mild tricuspid regurgitation present. 3. There is mild pulmonary hypertension. 4. The pulmonic valve was not well visualized. 5. The aortic root size is normal. 6. IVC Not well visulized. 7. There is no pericardial effusion. 8. This was a technically difficult study with suboptimal apical views. 9. There is mild concentric left ventricular hypertrophy. 10. Overall left ventricular systolic function is normal with, an EF between 55 - 60 %. 11. The left atrial size is normal. 12. 1.5mg of Definity was utilized for enhancement of images 13. There is mild aortic valve sclerosis. 14. Mild mitral annular calcification present. 15. There is trace mitral regurgitation. TRAVEL ADMINISTRATOR: Glenna Ames RDCS
[2016-11-10 12:44] LABS: Basophils % (A) 0 %; CH 30.6; CHCM 31.4; Eosinophils % (A) 0 %; HCT 40.1 % (39.0-53.0); HDW 2.44; HGB 12.7 gm/dL (13.0-17.5); Hypochromasia Slight; Luc # (Auto) 0.17; Luc % (Auto) 1; Lymphocytes # (A) 1.2 k/uL (1.0-4.8); Lymphocytes % (A) 8 %; MCHC 31.6 g/dL (31.0-37.0); Mean Platelet Volume 8.1; Monocytes # (A) 0.5 k/uL (0-1.0); Monocytes % (A) 4 %; Neutrophils # (A) 12.9 k/uL (1.3-7.7); Neutrophils % (A) 87 %; WBC 14.9 k/uL (3.8-10.6); WBC (Perox) 15.35
[2016-11-10 12:52] LABS: Anion Gap 16 mmol/L; Blood Urea Nitrogen 26 mg/dL (9-20); Calcium 8.2 mg/dL (8.4-10.2); Carbon Dioxide 25 mmol/L (22-30); Chloride 102 mmol/L (98-107); Glucose 239 mg/dL (74-99); Non-African American GFR(MDRD) >60 (>60 ml/min/1.73 sqM); Potassium 3.4 mmol/L (3.5-5.1); Sodium 143 mmol/L (137-145)
[2016-11-10 14:39] VITALS: BMI 28.5
--- NOTE | 2016-11-10 15:42 | CT ---
EXAMINATION TYPE: CT chest wo con DATE OF EXAM: 11/10/2016 COMPARISON: Prior CT chest 07/10/2011 HISTORY: Difficulty breathing CT DLP: 540 mGycm. Automated Exposure Control for Dose Reduction was Utilized. TECHNIQUE: CT scan of the thorax is performed without IV contrast. FINDINGS: LUNGS: There are bilateral pleural plaques some which are calcified. Interstitial changes are present within the lungs. There are areas of linear reticular bands, scarring. MEDIASTINUM: Lack of IV contrast is noted to limit evaluation for mediastinal and especially hilar ad enopathy. There are no definitive greater than 1 cm hilar or mediastinal lymph nodes. The heart is en larged. Coronary artery calcifications are present. No cardiomegaly or pericardial effusion is seen. OTHER: Hypodensities within the left lobe of the liver are again noted and likely represent cysts. Pr obable cortical cyst associated with the right kidney extends into the renal pelvis and measures appr oximately 3.9 cm. Degenerative disc changes in the visualized spine. IMPRESSION: Asbestos related disease. Interstitial lung disease. Cardiomegaly, coronary artery diseas e. Noncontrast exam may limit sensitivity. Additional findings above.
--- NOTE | 2016-11-10 15:55 | P.CNPUL ---
History of Present Illness Consult date: 11/10/16 Requesting physician: Favio Cabrera Reason for consult: dyspnea, COPD, pneumonia Chief complaint: shortness of breath History of present illness: Patient's 86-year-old male who came in with problems with increased difficulty with breathing that been going on for about 24 hours. He had been having some problems with coughing with productive cough of yellowish to green sputum. In addition he had noted fever and his pulse ox was checked at home and was found to be in the low 70s. He does have a significant history for COPD, CAD , diabetes mellitus, stroke affecting left hand with weakness, and bladder cancer. He is afebrile at this time. We'll order Pulmicort and IV steroids. In addition to her CAT scan of the chest without contrast. He did have an echocardiogram done which showed mild pulmonary hypertension and EF of 55-60% with atrial fibrillation. He follows with Dr. Norman on outpatient basis. Patient seen at this time he is sitting up in the chair he just worked with physical therapy and appears to be doing relatively well. He states that his son said he was having troubles with breathing last evening and that's why he was brought to the hospital. He's not had productive cough today, he denies any nausea/vomiting or diarrhea at this time. Review of Systems Head to toe assessment was done on patient and is essentially negative other than what was noted in his history of present illness and past medical history Past Medical History Past Medical History: Atrial Fibrillation, Coronary Artery Disease (CAD), Cancer , COPD, CVA/TIA, Diabetes Mellitus, Eye Disorder, GERD/Reflux, Hyperlipidemia, Hypertension, Myocardial Infarction (AR), Osteoarthritis (OA), Pneumonia, Prostate Disorder, Respiratory Disorder Additional Past Medical History / Comment(s): AR in 2006, CVA with L hand weakness, bladder cancer with surgery, "borderlline" diabetes, BPH, L eye macular degeneration, Last Myocardial Infarction Date:: 2006 History of Any Multi-Drug Resistant Organisms: None Reported Past Surgical History: Bladder Surgery, Heart Catheterization, Heart Catheterization With Stent, Hernia Repair, Orthopedic Surgery, Prostate Surgery Additional Past Surgical History / Comment(s): 2007 PCI with stents, bladder surgery for cancer, bilateral cataract removal. Left knee scope, prostate biopsy , cystoscopy, inguinal hernia and umbilical hernia Past Anesthesia/Blood Transfusion Reactions: No Reported Reaction Date of Last Stent Placement:: 2012 Smoking Status: Former smoker Additional History: Patient smoked one pack a day for about 33 years, he generally has one beer daily, he is to work and tool & [employer], he wears glasses, no marijuana or recreational drugs - Past Family History Mother Family Medical History: Cancer Additional Family Medical History / Comment(s): Mother at the age of 39 yrs from cancer-pt does not recall what type. Suspect stomach or pancreas. He had 5 brothers and 2 sisters Father Family Medical History: Coronary Artery Disease (CAD) Additional Family Medical History / Comment(s): Father at the age of 85yrs. he has 5 sons one is a quadriplegic from motor vehicle accident Medications and Allergies Home Medications Medication Instructions Recorded Confirmed Type Atenolol [Tenormin] 25 mg PO DAILY 12/09/14 11/09/16 History Budesonide [Pulmicort] 0.5 mg INHALATION RT-BID 12/09/14 11/09/16 History Budesonide-Formot 160-4.5 Mcg 2 puff INHALATION RT-BID 12/09/14 11/09/16 History [Symbicort 160-4.5 Mcg Inhaler] Montelukast [Singulair] 10 mg PO HS 12/09/14 11/09/16 History Omeprazole [PriLOSEC] 20 mg PO AC-BRKFST 12/09/14 11/09/16 History Pravastatin Sodium [Pravachol] 80 mg PO HS 12/09/14 11/09/16 History Tamsulosin [Flomax] 0.4 mg PO DAILY 12/09/14 11/09/16 History Ipratropium Nebulized [Atrovent 0.5 mg INHALATION RT-BID 10/31/16 11/09/16 History Nebulized] Lisinopril [Zestril] 5 mg PO HS 10/31/16 11/09/16 History Vit C/E/Zn/Coppr/Lutein/Zeaxan 1 cap PO BID 11/09/16 11/09/16 History [Preservision Areds 2 Softgel] Allergies Allergy/AdvReac Type Severity Reaction Status Date / Time No Known Allergies Allergy Verified 11/09/16 13:58 Physical Exam Vitals: Vital Signs Temp Pulse Pulse Resp BP Pulse Ox 11/10/16 12:00 97.0 F L 88 20 111/61 94 L 11/10/16 10:25 92 L 11/10/16 08:59 88 11/10/16 08:00 96.9 F L 71 18 129/65 100 11/10/16 04:00 96.7 F L 74 18 137/69 95 11/10/16 00:00 97.0 F L 92 20 134/64 96 11/09/16 21:03 84 11/09/16 20:43 99 11/09/16 20:40 84 11/09/16 20:00 96.6 F L 86 20 158/74 96 11/09/16 16:48 85 11/09/16 16:33 85 97 11/09/16 16:00 98.9 F 83 21 141/66 98 Intake and Output 11/10/16 11/10/16 11/10/16 06:59 14:59 22:59 Intake Total 220 240 Output Total 600 Balance -380 240 Intake: IV 220 Sodium Chloride 0.9% 1, 220 000 ml @ 20 mls/hr IV . Q24H [facility] Rx#:[id number] Oral 240 Output: Urine 600 Other: Voiding Method Urinal Diaper Incontinent # Voids 3 Weight 80.3 kg 80.3 kg Patient Weight 11/11/16 06:59 Weight 80.3 kg - Constitutional General appearance: average body habitus, cooperative, no acute distress - EENT Eyes: anicteric sclerae, PERRLA Ears: bilateral: normal - Neck Neck: normal ROM - Respiratory Respiratory: bilateral: diminished, wheezing (Few) - Cardiovascular Rhythm: irregularly irregular Heart sounds: normal: S1, S2 - Gastrointestinal General gastrointestinal: normal bowel sounds, soft - Integumentary Integumentary: normal, normal turgor - Neurologic Some left hand weakness Neurologic: CNII-XII intact - Musculoskeletal Musculoskeletal: left sided weakness - Psychiatric Psychiatric: A&O x's 3 Results - Laboratory Findings CBC and BMP: 11/10/16 12:19 11/10/16 12:19 PT/INR, D-dimer PT 13.4 sec (9.0-12.0) H 11/09/16 11:40 INR 1.4 (<1.1) 11/09/16 11:40 Abnormal lab findings: Abnormal Labs 11/09/16 11/09/16 11/09/16 11:40 11:40 11:40 WBC 13.7 H RBC 3.93 L Hgb 12.5 L Hct 36.4 L Neutrophils # 11.5 H PT Potassium BUN Glucose 124 H POC Glucose (mg/dL) Calcium 7.9 L AST 108 H Troponin I 0.052 H* Albumin 3.2 L Urine Protein Urine Ketones Urine Blood Urine Bacteria Urine Mucus 11/09/16 11/09/16 11/09/16 11:40 13:01 20:44 WBC RBC Hgb Hct Neutrophils # PT 13.4 H Potassium BUN Glucose POC Glucose (mg/dL) 206 H Calcium AST Troponin I Albumin Urine Protein 2+ H Urine Ketones 1+ H Urine Blood Small H Urine Bacteria Rare H Urine Mucus Occasional H 11/10/16 11/10/16 12:19 12:19 WBC 14.9 H RBC 4.10 L Hgb 12.7 L Hct Neutrophils # 12.9 H PT Potassium 3.4 L BUN 26 H Glucose 239 H POC Glucose (mg/dL) Calcium 8.2 L AST Troponin I Albumin Urine Protein Urine Ketones Urine Blood Urine Bacteria Urine Mucus Assessment and Plan Plan: Assessment and plan: Pneumonia where he'll continue with antibiotics and nebulizer treatments Acute exacerbation of COPD where he'll continue with nebulizer treatments and IV steroids and CT scan of the chest will be ordered without contrast History of diastolic CHF where he has a EF of 55-60% and mild pulmonary hypertension is noted and looks like atrial fibrillation now continue with meds as ordered Coronary artery disease with hypertension being followed by cardiology History of intracranial bleed with some left hand weakness continue with PT Diabetes mellitus continue with medications and follow glucose as ordered Continue with GI and DVT prophylaxis Increase activity as tolerated continue pulmonary hygiene await CT results Continue with oxygen to keep sats 92% or better Continue medications as ordered and reviewed Thank you for the consultation we'll continue to follow patient closely with you and make further changes as necessary.
[2016-11-10] MEDS ORDERED: POTASSIUM CHLORIDE ER 20 MEQ TAB.ER PO STA (17:02)
[2016-11-10] MEDS: SODIUM CHLORIDE 0.9% 1,000 ML IV SCH (17:08)
[2016-11-10] MEDS: AZITHROMYCIN 500 MG TAB PO SCH (17:14)
[2016-11-10] MEDS: INSULIN LISPRO (humaLOG) 300 UNIT/3 ML VIAL SQ SCH ×2 (17:15→21:03)
[2016-11-10] MEDS: methylPREDNISolone SOD SUCCI 125 MG/2 ML VIAL IV SCH ×2 (17:16→22:57)
[2016-11-10 17:25] LABS: Glucose,Whole Blood 195 mg/dL (75-99)
--- NOTE | 2016-11-10 17:45 | P.PN ---
Progress Note - Text DATE OF SERVICE: 11/10/2016 PRESENTING COMPLAINT: Shortness of breath INTERVAL HISTORY: 86-year-old patient who presented with pneumonia and sepsis and delirium. Sitting up in a chair this morning cough noted, no sputum production breathing easier. Tolerating his diet eating about 50% of his meals. REVIEW OF SYSTEMS: Done for constitutional ,cardiovascular, GI, pulmonary with relevant findings as above. CURRENT MEDICATIONS DuoNeb, Zithromax, ceftriaxone thousand milligrams, Lovenox, . PHYSICAL EXAM VITAL SIGNS: Temperature 97.0 pulse 78 respirations 20 pressure 111/61 oxygen saturation 94% on 5 L GENERAL APPEARANCE: Sitting up in a chair, not in distress, quite perky EYES: Pupils equal. Conjunctiva normal. NECK: JVD not raised. Mass not palpable. RESPIRATORY: Respiratory effort normal. Coarse breath sounds greater on the left than right.. CARDIOVASCULAR: Irregular rhythm. No edema. ABDOMEN: Soft. Liver and spleen not palpable. No tenderness. No mass palpable. PSYCHIATRY: Alert and oriented x3. Mood and affect normal. INVESTIGATIONS: White blood cell count 14.9, potassium 3.4, ASSESSMENT: -Left sided pneumonia multilobar, suspected gram-negative organism, causing sepsis on presentation, causing delirium, improving -New onset atrial flutter, rate controlled -Coronary artery disease with history of stent -COPD exacerbation acute, in an ex-smoker -Diabetes mellitus type II on oral hypoglycemics, uncontrolled due to acute illness -GERD -Hyperlipidemia -essential hypertension- -primary osteoarthritis multiple joints -Left hand weakness from all stroke -BPH -Troponin leak from hemodynamic mismatch, not acute [place] PLAN: Pulmonology following and will continue antibiotics nebulizer treatments and steroids. Cardiology will discuss need for anticoagulation with patient and son due to new onset atrial fibrillation and stroke prevention and previous stroke history. Plan of care discussed with patient, he is agreeable. COST SPECIALIST statement: Patient was seen and examined by nurse practitioner Fatimah Haro and all elements of the case discussed with attending Dr. Cabrera
[2016-11-10] MEDS: BUDESONIDE 0.5 MG/2 ML NEBU INHALATION SCH (19:56)
[2016-11-10] MEDS: IPRATROPIUM-ALBUTEROL 3 ML NEB INHALATION SCH (19:56)
[2016-11-10 20:54] LABS: Glucose,Whole Blood 218 mg/dL (75-99)
[2016-11-10] MEDS: MONTELUKAST 10 MG TAB PO SCH (21:02)
[2016-11-10] MEDS: LISINOPRIL 5 MG TAB PO SCH (21:02)
[2016-11-10] MEDS: PRAVASTATIN SODIUM 80 MG TAB PO SCH (21:03)
[2016-11-10] MEDS: TAMSULOSIN 0.4 MG CAP.ER.24H PO SCH (21:08)
[2016-11-11 06:16] LABS: Glucose,Whole Blood 218 mg/dL (75-99)
[2016-11-11 06:56] LABS: Basophils % (A) 0 %; CH 30.6; CHCM 32.3; Eosinophils % (A) 0 %; HGB 11.5 gm/dL (13.0-17.5); Luc # (Auto) 0.12; Luc % (Auto) 1; Lymphocytes % (A) 8 %; MCH 32.2 pg (25.0-35.0); MCHC 33.9 g/dL (31.0-37.0); MCV 95.1 fL (80.0-100.0); Monocytes # (A) 0.3 k/uL (0-1.0); Monocytes % (A) 3 %; Neutrophils # (A) 11.6 k/uL (1.3-7.7); Neutrophils % (A) 89 %; RBC 3.57 m/uL (4.30-5.90); RDW 15.2 % (11.5-15.5); WBC 13.1 k/uL (3.8-10.6); WBC (Perox) 12.49
[2016-11-11] MEDS: methylPREDNISolone SOD SUCCI 125 MG/2 ML VIAL IV SCH ×4 (07:01→23:22)
[2016-11-11] MEDS: PANTOPRAZOLE 40 MG TABLET PO SCH (07:02)
[2016-11-11] MEDS: NITROGLYCERIN OINT 1 INCH/GM PACKET TOPICAL SCH (07:02)
[2016-11-11] MEDS: INSULIN LISPRO (humaLOG) 300 UNIT/3 ML VIAL SQ SCH ×4 (07:02→21:42)
[2016-11-11 07:07] LABS: Anion Gap 11 mmol/L; Blood Urea Nitrogen 36 mg/dL (9-20); Calcium 8.1 mg/dL (8.4-10.2); Carbon Dioxide 27 mmol/L (22-30); Chloride 104 mmol/L (98-107); Glucose 214 mg/dL (74-99); Non-African American GFR(MDRD) >60 (>60 ml/min/1.73 sqM); Potassium 4.1 mmol/L (3.5-5.1); Sodium 142 mmol/L (137-145)
--- NOTE | 2016-11-11 07:46 | PN ---
DATE OF SERVICE: 11/10/16 This patient was seen and examined by me. Reviewed the note of my nurse practitioner Ms. Haro. Discussed. Additional findings below. INTERVAL HISTORY: This patient was admitted with severe multilobar pneumonia, sepsis, delirium last night started on antibiotics. This morning doing better, sitting up in a chair. Nurse states the patient ate about 50%. Slight cough is present. The patient is actually awake and cheerful. On examination, afebrile. Pulse ox 94% on 5L. Lungs decreased breath sounds. Minimal crackles today. Some prolonged expiration. Psych: Awake, answering questions. Investigations: White count 14.9. Potassium 3.4. Accu-Cheks noted. ASSESSMENT: 1. Multilobar pneumonia suspect gram negative organism causing sepsis on presentation, with clinical improvement. 2. Acute delirium from sepsis with clinical improvement. 3. New onset atrial flutter, rate controlled. PLAN: Continue the patient on IV antibiotics, nebulized bronchodilators. We will cut back on Solu-Medrol. The patient encouraged to increased oral intake. Follow. MTDD
[2016-11-11] MEDS: ENOXAPARIN 40 MG/0.4 ML SYRINGE SQ SCH (07:47)
[2016-11-11] MEDS: VIT A,C & E-LUTEIN-MINERALS 1 EACH TAB PO SCH ×2 (07:47→21:43)
[2016-11-11] MEDS: ATENOLOL 25 MG TAB PO SCH (07:47)
[2016-11-11] MEDS: BUDESONIDE 0.5 MG/2 ML NEBU INHALATION SCH ×2 (07:51→18:54)
[2016-11-11] MEDS: IPRATROPIUM-ALBUTEROL 3 ML NEB INHALATION SCH ×4 (07:51→18:54)
--- NOTE | 2016-11-11 11:27 | P.PN ---
Subjective This is a pleasant 86-year-old gentleman who follows regularly with Dr. LLOYD Costello in the office. He has a known history of coronary artery disease with prior LAD stenting, hypertension, hyperlipidemia, history of intracranial bleed Ammann who presents to the hospital with symptoms of progressively worsening shortness of breath with associated productive cough of yellowish- green sputum. Mild fever. Apparently his pulse ox was checked at home and was noted to be in the low 70s as well. He denies any chest discomfort. EKG shows atrial flutter with nonspecific ST-T wave changes recent echocardiogram with Doppler study was performed in October 2015 which revealed an ejection fraction of 50% with inferior basal and mild inferior hypokinesia. Chest x-ray reveals chronic parenchymal fibrosis with small bilateral pleural effusions and patchy bibasilar atelectasis and/or infiltrate. Temperature on arrival here 100.8, blood pressure 174/80, heart rate in the 90s, 71% on room air. Blood pressure this morning 129/60, heart rate in the 70s, temperature 96.9, 100% on 8 L high flow. White blood cell count 13.7, hemoglobin 12.5, platelet count 308. Potassium 3.5, BUN 15, creatinine 0.7. Magnesium level I.8. BNP level 3260, troponin 0.052. At the time of my examination this morning, patient continues to have productive cough. Denies chest pain. He is currently on IV antibiotics for treatment for pneumonia. He also did receive a one-time dose of IV Lasix in the emergency room. IV steroids have also been administered. 11/11/2016 Patient seen and examined this morning, overall feeling well today. Heart rate still in the low 100s to [address] Tess Costello did review the office chart, patient will not be a candidate for anticoagulation because of the significant intracranial hematoma. We will increase his dose of beta nadya today. Objective - Vital Signs Vital signs: Vital Signs Temp 96.0 F L 11/11/16 07:46 Pulse 74 11/11/16 08:14 Resp 16 11/11/16 07:46 BP 118/61 11/11/16 07:46 Pulse Ox 92 L 11/11/16 07:53 Intake & Output 11/10/16 11/11/16 11/11/16 18:59 06:59 18:59 Intake Total 360 Output Total 250 125 Balance 110 -125 Weight 80.3 kg 80.5 kg Intake: Oral 360 Output: Urine 250 125 Other: Voiding Method Urinal Diaper Incontinent # Voids 1 - Exam PHYSICAL EXAMINATION: HEENT: Head is atraumatic, normocephalic. Pupils equal, round. Neck is supple. There is no elevated jugular venous pressure. HEART EXAMINATION: S1 and S2 irregularly irregular CHEST EXAMINATION: Lungs reveal scattered coarse wheezes throughout with decreased air exchange. ABDOMEN: Soft, nontender. Bowel sounds are heard. No organomegaly noted. EXTREMITIES: 2+ peripheral pulses with no evidence of peripheral edema and no calf tenderness noted. NEUROLOGIC patient is awake, alert and oriented -2. . - Labs CBC & Chem 7: 11/11/16 06:08 11/11/16 06:08 Labs: Abnormal Lab Results - Last 24 Hours (Table) 11/10/16 11/10/16 11/10/16 Range/Units 12:19 12:19 17:12 WBC 14.9 H (3.8-10.6) k/uL RBC 4.10 L (4.30-5.90) m/uL Hgb 12.7 L (13.0-17.5) gm/dL Hct (39.0-53.0) % Neutrophils # 12.9 H (1.3-7.7) k/uL Potassium 3.4 L (3.5-5.1) mmol/L BUN 26 H (9-20) mg/dL Glucose 239 H (74-99) mg/dL POC Glucose (mg/dL) 195 H (75-99) mg/dL Calcium 8.2 L (8.4-10.2) mg/dL 11/10/16 11/11/16 11/11/16 Range/Units 20:53 06:08 06:08 WBC 13.1 H (3.8-10.6) k/uL RBC 3.57 L (4.30-5.90) m/uL Hgb 11.5 L (13.0-17.5) gm/dL Hct 34.0 L (39.0-53.0) % Neutrophils # 11.6 H (1.3-7.7) k/uL Potassium (3.5-5.1) mmol/L BUN 36 H (9-20) mg/dL Glucose 214 H (74-99) mg/dL POC Glucose (mg/dL) 218 H (75-99) mg/dL Calcium 8.1 L (8.4-10.2) mg/dL 11/11/16 Range/Units 06:15 WBC (3.8-10.6) k/uL RBC (4.30-5.90) m/uL Hgb (13.0-17.5) gm/dL Hct (39.0-53.0) % Neutrophils # (1.3-7.7) k/uL Potassium (3.5-5.1) mmol/L BUN (9-20) mg/dL Glucose (74-99) mg/dL POC Glucose (mg/dL) 218 H (75-99) mg/dL Calcium (8.4-10.2) mg/dL Microbiology - Last 24 Hours (Table) 11/09/16 13:01 Urine Culture - Final Urine,Catheterized 11/09/16 11:40 Blood Culture - Preliminary Blood No Growth after 24 hours Assessment and Plan Plan: Assessment and plan #1 symptoms of progressive shortness of breath with associated productive cough of yellow to green sputum. Positive associated fever and suggestion of infiltrate on chest x-ray. Patient is currently on IV antibiotics for treatment of pneumonia, he also received IV steroids. #2 mild congestive cardiac failure, likely diastolic in nature, acute and chronic. #3 atrial flutter, chronic persistent, appears to be new diagnosis, patient is currently on Lovenox. Not a candidate for anticoagulation. #4 known history of coronary artery disease with prior LAD stenting, patient also has known RCA occlusion and 50% stenosis to the circumflex by heart catheterization performed in 2006 #5 hypertension #6 hyperlipidemia #7 prior smoking history #8 prior intracranial bleed Plan We will increase the dose of atenolol to 50 mg one tablet by mouth daily, patient is not a candidate for anticoagulation. On discharge home to follow-up appointment will be made with Dr. Tess Costello in the office post discharge. DNP note has been reviewed, I agree with a documented findings and plan of care. Patient was seen and examined.
[2016-11-11 11:49] LABS: Glucose,Whole Blood 275 mg/dL (75-99)
--- NOTE | 2016-11-11 12:40 | P.PN ---
<Fatimah Haro - Last Filed: 11/11/16 12:36> Progress Note - Text DATE OF SERVICE: 11/11/16 PRESENTING COMPLAINT: Shortness of breath INTERVAL HISTORY: 86-year-old patient who presented with pneumonia and sepsis and delirium. Sitting up in a chair this morning cough noted, no sputum production breathing easier. Tolerating his diet eating about 50% of his meals. REVIEW OF SYSTEMS: Done for constitutional ,cardiovascular, GI, pulmonary with relevant findings as above. CURRENT MEDICATIONS DuoNeb, Zithromax, ceftriaxone thousand milligrams, Lovenox, . PHYSICAL EXAM VITAL SIGNS: Temperature 96.0, pulse 74, respirations 19, blood pressure 118/61, oxygen saturation 92% on 5 L high flow. GENERAL APPEARANCE: Sitting up in a chair, not in distress, quite perky EYES: Pupils equal. Conjunctiva normal. NECK: JVD not raised. Mass not palpable. RESPIRATORY: Respiratory effort normal. Coarse breath sounds greater on the left than right.. CARDIOVASCULAR: Irregular rhythm. No edema. ABDOMEN: Soft. Liver and spleen not palpable. No tenderness. No mass palpable. PSYCHIATRY: Alert and oriented x3. Mood and affect normal. INVESTIGATIONS: White blood cell count 13.1, hemoglobin 11.5, Accu-Cheks noted. ASSESSMENT: -Left sided pneumonia multilobar, suspected gram-negative organism, causing sepsis on presentation, causing delirium, improving -New onset atrial flutter, rate controlled -Coronary artery disease with history of stent -COPD exacerbation acute, in an ex-smoker -Diabetes mellitus type II on oral hypoglycemics, uncontrolled due to acute illness -GERD -Hyperlipidemia -essential hypertension- -primary osteoarthritis multiple joints -Left hand weakness from all stroke -BPH -Troponin leak from hemodynamic mismatch, not acute [place] PLAN: Pulmonology following and will continue antibiotics nebulizer treatments and steroids. Cardiology increased her atenolol to 50 mg daily, patient is not a candidate for anticoagulation, given his history. Plan of care discussed with patient and he is agreeable. WEB MANAGER statement: Patient was seen and examined by nurse practitioner Fatimah Haro and all elements of the case discussed with attending Dr. Cabrera <Favio Cabrera - Last Filed: 11/11/16 16:53> Progress Note - Text Attending note. Date of service-11/11/2016 This patient was seen and examined by me . I reviewed the note of my nurse practitioner, Ms. Haro. Discussed with her, additional findings as below. This very pleasant patient admitted with severe pneumonia with sepsis and delirium. Doing much better sitting up in a chair. Slight cough. Had some food. Did walk in the hallway with support. 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
[2016-11-11] MEDS: ATENOLOL 50 MG TAB PO SCH ×2 (13:08→13:12)
[2016-11-11 13:26] LABS: Hemoglobin A1C 6.4 % (4.2-6.1)
[2016-11-11] MEDS: SODIUM CHLORIDE 0.9% 1,000 ML IV SCH (15:34)
[2016-11-11] MEDS: AZITHROMYCIN 500 MG TAB PO SCH (15:43)
[2016-11-11 17:32] LABS: Glucose,Whole Blood 172 mg/dL (75-99)
[2016-11-11 20:58] LABS: Glucose,Whole Blood 168 mg/dL (75-99)
[2016-11-11] MEDS: PRAVASTATIN SODIUM 80 MG TAB PO SCH (21:43)
[2016-11-11] MEDS: TAMSULOSIN 0.4 MG CAP.ER.24H PO SCH (21:43)
[2016-11-11] MEDS: LISINOPRIL 5 MG TAB PO SCH (21:43)
[2016-11-11] MEDS: MONTELUKAST 10 MG TAB PO SCH (21:43)
[2016-11-12 05:52] LABS: Glucose,Whole Blood 244 mg/dL (75-99)
[2016-11-12] MEDS: methylPREDNISolone SOD SUCCI 125 MG/2 ML VIAL IV SCH ×2 (06:00→13:28)
[2016-11-12] MEDS: PANTOPRAZOLE 40 MG TABLET PO SCH (06:02)
[2016-11-12 06:13] LABS: Basophils % (A) 0 %; CH 30.5; CHCM 31.4; Eosinophils % (A) 0 %; HCT 33.1 % (39.0-53.0); HDW 2.41; Hypochromasia Slight; Luc # (Auto) 0.11; Luc % (Auto) 1; Lymphocytes # (A) 1.3 k/uL (1.0-4.8); Lymphocytes % (A) 11 %; MCH 32.4 pg (25.0-35.0); MCHC 33.3 g/dL (31.0-37.0); MCV 97.3 fL (80.0-100.0); Mean Platelet Volume 8.5; Monocytes # (A) 0.5 k/uL (0-1.0); Monocytes % (A) 4 %; Neutrophils # (A) 9.3 k/uL (1.3-7.7); Neutrophils % (A) 83 %; RDW 15.2 % (11.5-15.5); WBC 11.2 k/uL (3.8-10.6); WBC (Perox) 11.11
--- NOTE | 2016-11-12 06:16 | PN ---
DATE OF SERVICE; 11/11/2016 The patient is an 86-year-old male who is seen sitting up in a chair. He is awake and alert, feeling a little bit better today. He is afebrile, hemodynamically stable in no acute distress. ON PHYSICAL EXAM: VITAL SIGNS: Temp is 97.8, heart rate 74, respiratory rate is 18, blood pressure is 120/59, O2 sats 93% on room air. HEENT: Head is normocephalic and atraumatic. Neck is supple. Trachea is midline. Lungs with decreased breath sounds and expiratory wheeze. HEART: S1 and S2 are heard, not tachycardiac. ABDOMEN: Soft. Bowel sounds are heard. EXTREMITIES: With trace edema bilaterally. NEUROLOGIC: The patient is awake, alert and oriented. LABS: White count is 13.1, hemoglobin is 11.5, hematocrit is 34.0 with 359,000 platelets. Sodium is 142, potassium is 4.1, chloride is 104, carbon dioxide is 27, anion gap is 11. BUN is 36. Creatinine is 0.77. Glucose is 214. Calcium is 8.1. IMAGING: Chest CT done on the shows asbestos related disease, interstitial lung disease, cardiomegaly, coronary artery disease. Noncontrast exam may limit sensitivity. Lungs with bilateral pleural plaques, some which are calcified. Interstitial changes are present within the lungs. There are areas of linear reticular bands and scarring. IMPRESSION: 1. Acute exacerbation of chronic obstructive pulmonary disease. 2. History of diastolic congestive heart failure with an ejection fraction of 55% to 60%. 3. Mild pulmonary hypertension. 4. Coronary artery disease. 5. History of intracranial bleed with some left hand weakness. 6. Diabetes mellitus. PLAN: Continue current medications which have been reviewed with bronchodilators and aerosol steroids. Will add Solu-Medrol 60 q.6 x4 doses to decrease airway inflammation. Continue the GI and DVT prophylaxis. Continue oxygen to maintain saturations greater than or equal to 90%. Increase activity as tolerated. We will follow patent closely with you making further changes as necessary. MTDD
[2016-11-12 06:36] LABS: Blood Urea Nitrogen 43 mg/dL (9-20); Calcium 8.1 mg/dL (8.4-10.2); Carbon Dioxide 28 mmol/L (22-30); Glucose 257 mg/dL (74-99); Non-African American GFR(MDRD) >60 (>60 ml/min/1.73 sqM); Potassium 4.5 mmol/L (3.5-5.1); Sodium 141 mmol/L (137-145)
[2016-11-12 06:44] LABS: Anion Gap 10 mmol/L; Chloride 103 mmol/L (98-107)
[2016-11-12] MEDS: INSULIN LISPRO (humaLOG) 300 UNIT/3 ML VIAL SQ SCH ×2 (07:01→13:29)
[2016-11-12] MEDS: BUDESONIDE 0.5 MG/2 ML NEBU INHALATION SCH (07:52)
[2016-11-12] MEDS: IPRATROPIUM-ALBUTEROL 3 ML NEB INHALATION SCH ×3 (07:53→15:51)
[2016-11-12] MEDS: ENOXAPARIN 40 MG/0.4 ML SYRINGE SQ SCH (08:26)
[2016-11-12] MEDS: VIT A,C & E-LUTEIN-MINERALS 1 EACH TAB PO SCH (08:26)
[2016-11-12] MEDS: ATENOLOL 50 MG TAB PO SCH (08:27)
[2016-11-12] MEDS ORDERED: predniSONE 20 MG TAB PO SCH (09:00)
[2016-11-12 10:09] VITALS: BP 119/58; RESP 16; TEMP 96.9
[2016-11-12 12:13] LABS: Glucose,Whole Blood 161 mg/dL (75-99)
--- NOTE | 2016-11-12 14:49 | PN ---
DATE OF SERVICE: 11/12/2016 Patient is an 86-year-old male who is seen sleeping; however, easily arousable and appropriate. Patient is hemodynamically stable, afebrile, in no acute distress. Does feel like his breathing is a bit better today than yesterday. On physical exam, vital signs, temp is 96.9, heart rate is 72, respiratory rate is 16, blood pressure is 119/58, O2 sats 92% on room air. HEENT: Head is normocephalic, atraumatic. Neck is supple, trachea is midline. Lungs with little more air movement noted; however, continued to be decreased. No rales or wheezes. HEART: S1, S2 are heard, not tachycardic. ABDOMEN: Soft, bowel sound are heard. Extremities with trace edema. NEUROLOGIC: Patient is awake and alert, oriented. LABS: White count is 11.2, hemoglobin is 11.0, hematocrit is 33.1 with 351,000 platelets. Sodium is 141, potassium is 4.5, chloride is 103, CO2 is 28. Anion gap is 10, BUN is 43, creatinine 0.73, glucose is 257. Calcium is 8.1, no new imaging to review. IMPRESSION: 1. Acute exacerbation of chronic obstructive pulmonary disease. 2. History of diastolic congestive heart failure. 3. Mild pulmonary hypertension. 4. Coronary artery disease. 5. History of intracranial bleed with some left hand weakness. 6. Diabetes mellitus. PLAN: Continue current medications which have been reviewed. Patient will finish the IV Solu-Medrol today. Continue GI and DVT prophylaxis. Continue to increase activity as tolerated. Continue oxygen to maintain sats greater than or equal to 90% and will follow closely with you making further changes as necessary. MTDD
[2016-11-12 15:55] VITALS: PULSE 76
--- NOTE | 2016-11-12 16:03 | PN ---
Mr. Hermilo Espana is breathing easier today. His wheezing is less. His atrial fib rate is fairly well controlled. His cough and expectoration has also improved. Vital signs are stable. S1, S2 heard normally. Short systolic murmur noted. He has irregularity and rhythm but we have elected not to use anticoagulation give his intracranial bleed history less than two years ago. Abdomen and lower extremity examination unchanged. Plan is to continue current medications. Atenolol will be 25 mg in the morning, 12.5 in the evening. We will increase activity and plan for discharge soon. REESE
--- NOTE | 2016-11-12 18:55 | P.DS ---
<Fatimah Haro - Last Filed: 11/12/16 18:36> Providers Date of admission: 11/09/16 14:40 Expected date of discharge: 11/12/16 Attending physician: Favio Cabrera Consults: 11/09/16 17:06 Consult Physician Urgent Consulting Provider: Hanane Costello Consult Reason/Comments: Afib Do you want consulting provider notified?: Yes 11/10/16 10:24 Consult Physician Stat Consulting Provider: Oscar Costello Consult Reason/Comments: copd Do you want consulting provider notified?: Yes Primary care physician: 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 Had a cough and was dyspneic pulse ox in the 70s chest x-ray revealed increased basilar markings consistent with pneumonia and atelectasis and a small pleural effusion. Therefore patient was admitted with left-sided multilobar pneumonia, pulmonology was consulted, breathing treatments and IV steroids were ordered, oxygen administered, antibiotics initiated. Cardiology was consulted to follow his atrial fibrillation which was well controlled, and atenolol was adjusted accordingly. Patient's oxygen was titrated back daily, IV antibiotics administered IV steroids and breathing treatments administered as well, patient's condition improved, became less delirious, breathing was easier did not require oxygen any longer,. Patient ambulatory in the hallway with assistance, no longer requiring oxygen, tolerating his diet, no further confusion, and would like to go home. PHYSIICAL EXAM: CARDIOVASCULAR: irregular heart rhythm, rate controlled mild edema noted to lower extremities. RESPIRATORY: respiratory effort normal, lung sounds diminished bilaterally faint crackles noted to the bases. GI: abdomen soft nontender liver and spleen not palpable MUSKULOSKELETAL: ambulatory in the hallway with a walker which is his baseline Patient was seen and examined by nurse practitioner Fatimah Haro in all elements of the case discussed with attending Dr. Cabrera DISPOSITION: discharge home to the care of his family with home care services. Plan - Discharge Summary New Discharge Prescriptions: New Atenolol [Tenormin] 50 mg PO DAILY #30 tab Cefuroxime Axetil [Ceftin] 500 mg PO BID #6 tab predniSONE 10 mg PO DAILY #30 tab Continue Montelukast [Singulair] 10 mg PO HS Budesonide [Pulmicort] 0.5 mg INHALATION RT-BID Tamsulosin [Flomax] 0.4 mg PO DAILY Pravastatin Sodium [Pravachol] 80 mg PO HS Omeprazole [PriLOSEC] 20 mg PO AC-BRKFST Budesonide-Formot 160-4.5 Mcg [Symbicort 160-4.5 Mcg Inhaler] 2 puff INHALATION RT-BID Ipratropium Nebulized [Atrovent Nebulized] 0.5 mg INHALATION RT-BID Lisinopril [Zestril] 5 mg PO HS Vit C/E/Zn/Coppr/Lutein/Zeaxan [Preservision Areds 2 Softgel] 1 cap PO BID Discontinued Atenolol [Tenormin] 25 mg PO DAILY Discharge Medication List Budesonide [Pulmicort] 0.5 mg INHALATION RT-BID 12/09/14 [History] Budesonide-Formot 160-4.5 Mcg [Symbicort 160-4.5 Mcg Inhaler] 2 puff INHALATION RT-BID 12/09/14 [History] Montelukast [Singulair] 10 mg PO HS 12/09/14 [History] Omeprazole [PriLOSEC] 20 mg PO AC-BRKFST 12/09/14 [History] Pravastatin Sodium [Pravachol] 80 mg PO HS 12/09/14 [History] Tamsulosin [Flomax] 0.4 mg PO DAILY 12/09/14 [History] Ipratropium Nebulized [Atrovent Nebulized] 0.5 mg INHALATION RT-BID 10/31/16 [ History] Lisinopril [Zestril] 5 mg PO HS 10/31/16 [History] Vit C/E/Zn/Coppr/Lutein/Zeaxan [Preservision Areds 2 Softgel] 1 cap PO BID 11/09 [History] Atenolol [Tenormin] 50 mg PO DAILY #30 tab 11/12/16 [Rx] Cefuroxime Axetil [Ceftin] 500 mg PO BID #6 tab 11/12/16 [Rx] predniSONE 10 mg PO DAILY #30 tab 11/12/16 [Rx] Follow up Appointment(s)/Referral(s): Hanane Costello MD [STAFF PHYSICIAN] - 1 Week (office will call you with follow up appointment) Seth Norman MD [Primary Care Provider] - 11/18/16 10:45 am [facility], [NON-STAFF] - As Needed Oscar Costello MD [STAFF PHYSICIAN] - 1 Week (office is closed please call on Tuesday am to make appointment) Ambulatory/Diagnostic Orders: Basic Metabolic Panel [LAB.AMB] Location: Determined By Patient Complete Blood Count w/diff [LAB.AMB] Location: Determined By Patient Patient Instructions/Handouts: Heart Failure (DC), Bacterial Pneumonia (DC), How Your Lungs Work (DC) Activity/Diet/Wound Care/Special Instructions: heart healthy diet Discharge Disposition: HOME WITH HOME HEALTH SERVICES <Favio Cabrera - Last Filed: 11/12/16 19:25> Hospital Course: Attending note: Addendum to discharge summary. This patient is seen and examined by me. Discussed with my nurse practitioner Miss Haro. This patient admitted with multilobar pneumonia with sepsis, responded very well to antibiotics. Delirium resolved. On examination Lungs improve entry, AO 3 Discharge home with antibiotics, pulse ox well on room air. Care was discussed with the patient. Discharge planning more than 35 minutes
== END 2016-11-12 16:37 | disposition home health service (06) | DRG 871 ==
LOC: EC 11:18 → 6SEL 14:40
PROVIDERS: ADMIT Hospitalist; ATTEND Hospitalist
DX: A41.9 Sepsis, unspecified organism (principal); J15.6 Pneumonia due to other Gram-negative bacteria; I11.0 Hypertensive heart disease with heart failure; J44.0 Chronic obstructive pulmonary disease with (acute) lower respiratory infection; F05 Delirium due to known physiological condition; I50.32 Chronic diastolic (congestive) heart failure; I48.92 Unspecified atrial flutter; I69.354 Hemiplegia and hemiparesis following cerebral infarction affecting left non-dominant side; J44.1 Chronic obstructive pulmonary disease with (acute) exacerbation; I27.2 Other secondary pulmonary hypertension; E11.9 Type 2 diabetes mellitus without complications; E78.5 Hyperlipidemia, unspecified; H35.30 Unspecified macular degeneration; I25.10 Atherosclerotic heart disease of native coronary artery without angina pectoris; I25.2 Old myocardial infarction; I48.91 Unspecified atrial fibrillation; K21.9 Gastro-esophageal reflux disease without esophagitis; M15.9 Polyosteoarthritis, unspecified; N40.0 Benign prostatic hyperplasia without lower urinary tract symptoms; Z79.51 Long term (current) use of inhaled steroids; Z79.899 Other long term (current) drug therapy; Z82.49 Family history of ischemic heart disease and other diseases of the circulatory system; Z85.51 Personal history of malignant neoplasm of bladder; Z87.891 Personal history of nicotine dependence; Z95.5 Presence of coronary angioplasty implant and graft
CPT/HCPCS: 36415; 71020; 71250; 80048; 80053; 81001; 82550; 82553; 83036; 83605; 83735; 83880; 84439; 84443; 84484; 85025; 85610; 85730; 87040; 87086; 93005; 93306; 94640; 94760; 96361; 96365; 96367; 96375; 99291

== ENCOUNTER → 2017-01-01 | Outpatient (CLI) | payer MEDICARE, BC ==
[2017-01-01 14:29] LABS: Calcium 8.3 mg/dL (8.4-10.2); Phosphorous 3.9 mg/dL (2.5-4.5); Potassium 3.9 mmol/L (3.5-5.1); Total Bilirubin 0.5 mg/dL (0.2-1.3); Total Protein 6.9 g/dL (6.3-8.2)
[2017-01-01 14:34] LABS: Basophils % (A) 0 %; CH 29.9; CHCM 31.4; Eosinophils # (A) 0.1 k/uL (0-0.7); Eosinophils % (A) 1 %; HCT 35.3 % (39.0-53.0); HDW 2.62; HGB 11.2 gm/dL (13.0-17.5); Hypochromasia Slight; Luc # (Auto) 0.24; Luc % (Auto) 2; Lymphocytes # (A) 2.5 k/uL (1.0-4.8); Lymphocytes % (A) 25 %; MCH 30.4 pg (25.0-35.0); MCHC 31.9 g/dL (31.0-37.0); MCV 95.5 fL (80.0-100.0); Mean Platelet Volume 8.2; Monocytes # (A) 0.6 k/uL (0-1.0); Monocytes % (A) 6 %; Neutrophils # (A) 6.5 k/uL (1.3-7.7); Neutrophils % (A) 66 %; RBC 3.69 m/uL (4.30-5.90); RDW 15.1 % (11.5-15.5); WBC 9.9 k/uL (3.8-10.6); WBC (Perox) 9.94
== END | disposition home or self-care (01) ==
LOC: LABMAIN 13:28
PROVIDERS: ATTEND Family Medicine
DX: N28.9 Disorder of kidney and ureter, unspecified (principal); I50.9 Heart failure, unspecified
CPT/HCPCS: 36415; 80053; 83880; 84100; 85025

== ENCOUNTER 2019-03-13 12:09 | Observation (INO) | payer MEDICARE, BC ==
[2019-03-13] MEDS ORDERED: IPRATROPIUM-ALBUTEROL 3 ML NEB INHALATION STA (12:20)
[2019-03-13 13:39] LABS: Basophils % (A) 0 %; Eosinophils % (A) 0 %; HCT 38.8 % (39.0-53.0); HGB 12.8 gm/dL (13.0-17.5); Lymphocytes # (A) 4.2 k/uL (1.0-4.8); Lymphocytes % (A) 31 %; MCH 31.6 pg (25.0-35.0); MCHC 32.9 g/dL (31.0-37.0); Mean Platelet Volume 7.1; Monocytes % (A) 7 %; Neutrophils # (A) 7.8 k/uL (1.3-7.7); Neutrophils % (A) 59 %; Platelet Count 258 k/uL (150-450); RBC 4.05 m/uL (4.30-5.90); RDW 14.1 % (11.5-15.5); WBC 13.2 k/uL (3.8-10.6)
--- NOTE | 2019-03-13 13:47 | XR ---
EXAMINATION TYPE: XR chest 2V DATE OF EXAM: 03/13/2019 COMPARISON: 11/10/2016 HISTORY: Productive cough TECHNIQUE: Frontal and lateral views of the chest are obtained. FINDINGS: Left-sided pleural-based mass is present similar to the thousand 17. Pleural plaque was se en on the CT chest of 2017. Pleural plaquing on the right is less conspicuous. Chronic interstitial p rominence. No new focal consolidation. Mediastinal silhouette is stable and mildly enlarged. Flatteni ng the diaphragms is seen from underlying COPD. IMPRESSION: No acute process. Similar pleural-based mass in comparison to 2017. Underlying COPD.
[2019-03-13 13:52] LABS: Albumin 3.8 g/dL (3.5-5.0); Calcium 8.7 mg/dL (8.4-10.2); Potassium 3.7 mmol/L (3.5-5.1); Total Bilirubin 0.6 mg/dL (0.2-1.3)
[2019-03-13] MEDS ORDERED: methylPREDNISolone SOD SUCCI 125 MG/2 ML VIAL IV STA (15:33)
--- NOTE | 2019-03-13 15:34 | ED ---
General Adult HPI - General Chief complaint: Upper Respiratory Infection Stated complaint: Sob Time Seen by Provider: 03/13/19 12:15 Source: patient Mode of arrival: wheelchair Limitations: no limitations - History of Present Illness Initial comments: The patient is an 88-year-old male with past medical history of age fibrillation and COPD who presents to the emergency department with a productive cough. He states that it has been present for the past week. He reports to thick sputum production. No report of any any fevers or chills. Admits to increased shortness of breath. He saw Dr. Costello in office. He was placed on steroids. He has been taking them as directed however reports that his breathing has only gotten worse. He denies any chest pain or palpitations. No ripping or tearing sensation to his back. Denies any nausea or vomiting. Denies any abdominal pain. No recent antibiotic use. No sick contacts or recent travel. Admits to chronic lower extremity edema. It has not been any worse than normal. No calf pain or swelling. No history of DVT or PE. There are no other alleviating, precipitating or modifying factors - Related Data Home Medications Medication Instructions Recorded Confirmed Budesonide-Formot 160-4.5 Mcg 2 puff INHALATION RT-BID PRN 12/09/14 03/13/19 [Symbicort 160-4.5 Mcg Inhaler] Montelukast [Singulair] 10 mg PO HS 12/09/14 03/13/19 Pravastatin Sodium [Pravachol] 80 mg PO HS 12/09/14 03/13/19 Vit C/E/Zn/Coppr/Lutein/Zeaxan 1 cap PO HS 11/09/16 03/13/19 [Preservision Areds 2 Softgel] Albuterol Nebulized [Ventolin 2.5 mg INHALATION RT-Q4H PRN 03/13/19 03/13/19 Nebulized] Budesonide [Pulmicort] 0.5 mg INHALATION RT-BID 03/13/19 03/13/19 Famotidine 40 mg PO HS 03/13/19 03/13/19 Furosemide [Lasix] 20 mg PO DAILY PRN 03/13/19 03/13/19 Metoprolol Tartrate [Lopressor] 25 mg PO BID 03/13/19 03/13/19 Sacubitril/Valsartan [Entresto 49 1 tab PO BID 03/13/19 03/13/19 mg-51 mg Tablet] predniSONE See Taper PO DAILY 03/13/19 03/13/19 Allergies Allergy/AdvReac Type Severity Reaction Status Date / Time No Known Allergies Allergy Verified 03/13/19 16:01 Review of Systems ROS Statement: Those systems with pertinent positive or pertinent negative responses have been documented in the HPI. ROS Other: All systems not noted in ROS Statement are negative. Past Medical History Past Medical History: Atrial Fibrillation, Coronary Artery Disease (CAD), Cancer, COPD, CVA/TIA, Diabetes Mellitus, Eye Disorder, GERD/Reflux, Hyperlipidemia, Hypertension, Myocardial Infarction ([place]), Osteoarthritis (OA), Pneumonia, Prostate Disorder, Respiratory Disorder Additional Past Medical History / Comment(s): [place] in 2006, CVA with L hand weakness, bladder cancer with surgery, "borderlline" diabetes, BPH, L eye macular degeneration, Last Myocardial Infarction Date:: 2006 History of Any Multi-Drug Resistant Organisms: None Reported Past Surgical History: Bladder Surgery, Heart Catheterization, Heart Catheterization With Stent, Hernia Repair, Orthopedic Surgery, Prostate Surgery Additional Past Surgical History / Comment(s): 2006 PCI with stents, bladder surgery for cancer, bilateral cataract removal. Left knee scope, prostate biopsy, cystoscopy, inguinal hernia and umbilical hernia Past Anesthesia/Blood Transfusion Reactions: No Reported Reaction Date of Last Stent Placement:: 2012 Past Psychological History: No Psychological Hx Reported Smoking Status: Former smoker Past Alcohol Use History: Occasional Past Drug Use History: None Reported - Past Family History Mother Family Medical History: Cancer Additional Family Medical History / Comment(s): Mother at the age of 39 yrs from cancer-pt does not recall what type. Father Family Medical History: No Reported History Additional Family Medical History / Comment(s): Father at the age of 85yrs. General Exam Limitations: no limitations General appearance: alert, in no apparent distress Head exam: Present: atraumatic, normocephalic, normal inspection Eye exam: Present: normal appearance, PERRL, EOMI. Absent: scleral icterus, conjunctival injection, periorbital swelling ENT exam: Present: normal exam, mucous membranes moist Neck exam: Present: normal inspection. Absent: tenderness, meningismus, lymphadenopathy Respiratory exam: Present: wheezes (at the end of exhalation, at the bases), decreased breath sounds (at the bases), other (bronchospasm cough). Absent: respiratory distress, rales, rhonchi, stridor Cardiovascular Exam: Present: regular rate, normal rhythm, normal heart sounds. Absent: systolic murmur, diastolic murmur, rubs, gallop, clicks GI/Abdominal exam: Present: soft, normal bowel sounds. Absent: distended, tenderness, guarding, rebound, rigid Extremities exam: Present: normal inspection, full ROM, normal capillary refill. Absent: tenderness, pedal edema, joint swelling, calf tenderness Back exam: Present: normal inspection Neurological exam: Present: alert, oriented X3, CN II-XII intact Psychiatric exam: Present: normal affect, normal mood Skin exam: Present: warm, dry, intact, normal color. Absent: rash Course Vital Signs 03/13/19 03/13/19 03/13/19 12:11 12:49 12:57 Temperature 97.7 F Pulse Rate 69 70 74 Respiratory 18 Rate Blood Pressure 125/70 O2 Sat by Pulse 96 Oximetry 03/13/19 03/13/19 14:26 16:11 Temperature 98.2 F 97.9 F Pulse Rate 70 65 Respiratory 18 17 Rate Blood Pressure 131/84 142/80 O2 Sat by Pulse 95 94 L Oximetry EKG Findings - EKG Comments: EKG Findings:: EKG demonstrates a possible junctional rhythm with PVCs. Rate of 69. QRS 106. QTC 413. There are PVCs. No acute ST segment elevations. EKG is compared to previous and is different. Patient previously in A. fib rhythm. Medical Decision Making - Medical Decision Making Upon arrival the patient was placed into room 19. A thorough history of physical exam was performed. I did recommend laboratory studies and a chest x- ray. White blood cell count is 13.2 liekly secondary to recent steroid use. C MP is unremarkable. BNP elevated at 3320. Influenza A and B is negative. Chest x-rays performed which demonstrates no acute process. Similar pleural- based mass in comparison to 2017 and I did reevaluate the patient. He was given a DuoNeb breathing treatment and a dose of Solu-Medrol. She reports no improvement in his symptoms. Because of this failed outpatient therapy I did recommend hospital admission. A call discuss case with Dr. Reardon who accepted admission for the patient. Bridging orders were placed. I will consult pulmonology. Patient remained in stable condition was transported to the floor. - Lab Data Result diagrams: 03/14/19 08:25 03/14/19 08:25 Lab Results 03/13/19 03/13/19 03/13/19 Range/Units 12:20 12:20 12:20 WBC 13.2 H (3.8-10.6) k/uL RBC 4.05 L (4.30-5.90) m/uL Hgb 12.8 L (13.0-17.5) gm/dL Hct 38.8 L (39.0-53.0) % MCV 96.0 (80.0-100.0) fL MCH 31.6 (25.0-35.0) pg MCHC 32.9 (31.0-37.0) g/dL RDW 14.1 (11.5-15.5) % Plt Count 258 (150-450) k/uL Neutrophils % 59 % Lymphocytes % 31 % Monocytes % 7 % Eosinophils % 0 % Basophils % 0 % Neutrophils # 7.8 H (1.3-7.7) k/uL Lymphocytes # 4.2 (1.0-4.8) k/uL Monocytes # 1.0 (0-1.0) k/uL Eosinophils # 0.0 (0-0.7) k/uL Basophils # 0.0 (0-0.2) k/uL Sodium 140 (137-145) mmol/L Potassium 3.7 (3.5-5.1) mmol/L Chloride 102 (98-107) mmol/L Carbon Dioxide 30 (22-30) mmol/L Anion Gap 8 mmol/L BUN 31 H (9-20) mg/dL Creatinine 0.97 (0.66-1.25) mg/dL Est GFR (CKD-EPI)AfAm 80 (>60 ml/min/1.73 sqM) Est GFR (CKD-EPI)NonAf 70 (>60 ml/min/1.73 sqM) Glucose 94 (74-99) mg/dL Calcium 8.7 (8.4-10.2) mg/dL Total Bilirubin 0.6 (0.2-1.3) mg/dL AST 20 (17-59) U/L ALT 22 (21-72) U/L Alkaline Phosphatase 55 (38-126) U/L NT-Pro-B Natriuret Pep 3320 pg/mL Total Protein 7.0 (6.3-8.2) g/dL Albumin 3.8 (3.5-5.0) g/dL Influenza Type A RNA (Not Detectd) Influenza Type B (PCR) (Not Detectd) 03/13/19 Range/Units 12:45 WBC (3.8-10.6) k/uL RBC (4.30-5.90) m/uL Hgb (13.0-17.5) gm/dL Hct (39.0-53.0) % MCV (80.0-100.0) fL MCH (25.0-35.0) pg MCHC (31.0-37.0) g/dL RDW (11.5-15.5) % Plt Count (150-450) k/uL Neutrophils % % Lymphocytes % % Monocytes % % Eosinophils % % Basophils % % Neutrophils # (1.3-7.7) k/uL Lymphocytes # (1.0-4.8) k/uL Monocytes # (0-1.0) k/uL Eosinophils # (0-0.7) k/uL Basophils # (0-0.2) k/uL Sodium (137-145) mmol/L Potassium (3.5-5.1) mmol/L Chloride (98-107) mmol/L Carbon Dioxide (22-30) mmol/L Anion Gap mmol/L BUN (9-20) mg/dL Creatinine (0.66-1.25) mg/dL Est GFR (CKD-EPI)AfAm (>60 ml/min/1.73 sqM) Est GFR (CKD-EPI)NonAf (>60 ml/min/1.73 sqM) Glucose (74-99) mg/dL Calcium (8.4-10.2) mg/dL Total Bilirubin (0.2-1.3) mg/dL AST (17-59) U/L ALT (21-72) U/L Alkaline Phosphatase (38-126) U/L NT-Pro-B Natriuret Pep pg/mL Total Protein (6.3-8.2) g/dL Albumin (3.5-5.0) g/dL Influenza Type A RNA Not Detected (Not Detectd) Influenza Type B (PCR) Not Detected (Not Detectd) Disposition Clinical Impression: Tracheobronchitis, COPD (chronic obstructive pulmonary disease) Disposition: ADMITTED IP TO THIS HOSP Condition: Stable Is patient prescribed a controlled substance at d/c from ED?: No Decision to Admit Reason: Admit from EC Decision Date: 03/13/19 Decision Time: 15:34
[2019-03-13] MEDS ORDERED: cefTRIAXone IN SWFI 1,000 MG/10 ML SYRINGE IVP STA (15:45)
[2019-03-13] MEDS ORDERED: NALOXONE 0.4 MG/ML 1 ML VIAL IV PRN (15:45)
[2019-03-13] MEDS ORDERED: AZITHROMYCIN 500 MG in SODIUM CHLORIDE 0.9% 250 ML IVPB STA (15:45)
[2019-03-13] MEDS ORDERED: FUROSEMIDE 20 MG TAB PO PRN (16:52)
--- NOTE | 2019-03-13 16:52 | P.HPIM ---
History of Present Illness H&P Date: 03/13/19 Chief Complaint: Shortness of breath 88-year-old male with PMH of COPD, atrial fibrillation, CAD post stent, diabetes mellitus, hypertension, dyslipidemia, previous CVA with some left-sided residual weakness presents the ED for cough and worsening shortness of breath. Patient reports a cough that is been productive of yellow and green sputum that has been ongoing for the past 3 days. He was able to follow-up with his lead developer Dr. Costello in clinic and was given a steroid taper. Patient denied any sick contacts. Patient also attempted to try nebulize treatments without any relief. His breathing began to deteriorate yesterday and got worse and today, prompting him to come to the ED. Patient reports a 40 pack year history of smoking but has quit for many years. Patient denies getting the flu shot. He denies any headache, lower extremity edema, nausea or vomiting, fever or chills, chest pain, palpitations, changes in urination or bowel habits. No changes in appetite or weight. Patient denies any dizziness, numbness/weakness/tingling of the extremities. In the ED, O2 sat was as low as 94%. Vital signs were otherwise stable. CBC showed a leukocytosis of 13.2 and hemoglobin of 12.8. CMP showed BUN 31. Flu was negative. Chest x-ray was negative for acute process. Patient is admitted for COPD exacerbation likely due to tracheobronchitis with pulmonology on consult. Review of Systems Pertinent positives and negatives as discussed in HPI, a complete review of systems was performed and all other systems are negative. Past Medical History Past Medical History: Atrial Fibrillation, Coronary Artery Disease (CAD), Cancer, COPD, CVA/TIA, Diabetes Mellitus, Eye Disorder, GERD/Reflux, Hyperlipidemia, Hypertension, Myocardial Infarction ([place]), Osteoarthritis (OA), Pneumonia, Prostate Disorder, Respiratory Disorder Additional Past Medical History / Comment(s): [place] in 2006, CVA with L hand weakness, bladder cancer with surgery, "borderlline" diabetes, BPH, L eye macular degeneration, Last Myocardial Infarction Date:: 2006 History of Any Multi-Drug Resistant Organisms: None Reported Past Surgical History: Bladder Surgery, Heart Catheterization, Heart Catheterization With Stent, Hernia Repair, Orthopedic Surgery, Prostate Surgery Additional Past Surgical History / Comment(s): 2007 PCI with stents, bladder surgery for cancer, bilateral cataract removal. Left knee scope, prostate biopsy, cystoscopy, inguinal hernia and umbilical hernia Past Anesthesia/Blood Transfusion Reactions: No Reported Reaction Date of Last Stent Placement:: 2012 Past Psychological History: No Psychological Hx Reported Smoking Status: Former smoker Past Alcohol Use History: Occasional Past Drug Use History: None Reported - Past Family History Mother Family Medical History: Cancer Additional Family Medical History / Comment(s): Mother at the age of 39 yrs from cancer-pt does not recall what type. Father Family Medical History: No Reported History Additional Family Medical History / Comment(s): Father at the age of 85yrs. Medications and Allergies Home Medications Medication Instructions Recorded Confirmed Type Budesonide-Formot 160-4.5 Mcg 2 puff INHALATION RT-BID PRN 12/09/14 03/13/19 History [Symbicort 160-4.5 Mcg Inhaler] Montelukast [Singulair] 10 mg PO HS 12/09/14 03/13/19 History Pravastatin Sodium [Pravachol] 80 mg PO HS 12/09/14 03/13/19 History Vit C/E/Zn/Coppr/Lutein/Zeaxan 1 cap PO HS 11/09/16 03/13/19 History [Preservision Areds 2 Softgel] Albuterol Nebulized [Ventolin 2.5 mg INHALATION RT-Q4H PRN 03/13/19 03/13/19 History Nebulized] Budesonide [Pulmicort] 0.5 mg INHALATION RT-BID 03/13/19 03/13/19 History Famotidine 40 mg PO HS 03/13/19 03/13/19 History Furosemide [Lasix] 20 mg PO DAILY PRN 03/13/19 03/13/19 History Metoprolol Tartrate [Lopressor] 25 mg PO BID 03/13/19 03/13/19 History Sacubitril/Valsartan [Entresto 49 1 tab PO BID 03/13/19 03/13/19 History mg-51 mg Tablet] predniSONE See Taper PO DAILY 03/13/19 03/13/19 History Allergies Allergy/AdvReac Type Severity Reaction Status Date / Time No Known Allergies Allergy Verified 03/13/19 16:01 Physical Exam Vitals: Vital Signs Temp Pulse Resp BP Pulse Ox 03/13/19 16:39 97.7 F 72 18 137/75 94 L 03/13/19 16:11 97.9 F 65 17 142/80 94 L 03/13/19 14:26 98.2 F 70 18 131/84 95 03/13/19 12:57 74 03/13/19 12:49 70 03/13/19 12:11 97.7 F 69 18 125/70 96 Intake and Output 03/13/19 03/13/19 03/13/19 06:59 14:59 22:59 Other: Weight 81.647 kg General: [non toxic], [no distress], [appears at stated age] Derm: [warm], [dry] Head: [atraumatic], [normocephalic], [symmetric] Eyes: [EOMI], [no lid lag], [anicteric sclera] Mouth: [no lip lesion], [mucus membranes moist] Cardiovascular: [S1S2 reg], [irregularly irregular], [positive DP pulse bilateral], Lungs: [Coarse breath sounds bilateral with and expiratory wheezing], [no rhonchi, no rales] , [no accessory muscle use] Abdominal: [soft], [ nontender to palpation], [no guarding], [no appreciable organomegaly] Ext: [no gross muscle atrophy], [no edema], [no contractures] Neuro: [ CN II-XI grossly intact], [4-5 strength in left upper and lower extremity, 5 out of 5 throughout otherwise] Psych: [Alert], [oriented], [appropriate affect] Results CBC & Chem 7: 03/13/19 12:20 03/13/19 12:20 Labs: Abnormal Lab Results - Last 24 Hours (Table) 03/13/19 03/13/19 Range/Units 12:20 12:20 WBC 13.2 H (3.8-10.6) k/uL RBC 4.05 L (4.30-5.90) m/uL Hgb 12.8 L (13.0-17.5) gm/dL Hct 38.8 L (39.0-53.0) % Neutrophils # 7.8 H (1.3-7.7) k/uL BUN 31 H (9-20) mg/dL Assessment and Plan Assessment: Assessment and plan Acute on chronic COPD exacerbation likely due to tracheobronchitis Leukocytosis Anemia Elevated BUN Chronic conditions: Atrial fibrillation, CAD, history of CVA, hypertension, dyslipidemia, diabetes mellitus Chest x-ray negative for acute process. Plans: DuoNeb scheduled and as needed for shortness of breath and wheezing. Continue Solu-Medrol. O2 per NC to maintain O2 saturation greater than 92%. Will start 3 day course of az ithromycin for concerns of tracheobronchitis. Follow pulmonology consultation. Leukocytosis of 13.2. Likely due to home steroid use. Plans: No signs of infection. Continue to monitor. Hemoglobin 12.8. Normocytic. Plans: Transfuse if hemoglobin less than 7. Follow ferritin, iron studies. Follow B12 and folate. BUN 31. Likely due to dehydration. Plans: Encourage hydration by mouth. Avoid nephrotoxins. We will resume beta nadya for atrial fibrillation, hypertension and CAD. Patient does not take aspirin or anticoagulation due to hematoma seen on MRI brain in 2014. His blood pressure is currently under control. We will resume her pravastatin for dyslipidemia. Diabetes mellitus will be controlled with insulin sliding scale along with regular Accu-Cheks and hypoglycemic prec autions. DVT prophylaxis: [SCD] Discussed with: [Patient] Anticipated discharge: [1-2 days] Anticipated discharge place: [Home] A total of [45] minutes was spent on the care of this complex patient more than 50% of the time was spent in counseling and care coordination. Patient names his son Carlyle decision-maker in the case that he can't make decisions for himself. Patient reiterates wanting to remain full code at this time.
[2019-03-13] MEDS ORDERED: HYDROcodone/APAP 5-325MG 1 EACH TAB PO PRN (16:53)
[2019-03-13] MEDS ORDERED: ACETAMINOPHEN TAB 325 MG TAB PO PRN (16:53)
[2019-03-13] MEDS: methylPREDNISolone SOD SUCCI 40 MG/ML 1 ML VIAL IV SCH ×2 (17:16→23:29)
[2019-03-13] MEDS: INSULIN ASPART (NovoLOG) 100 UNIT/ML VIAL SQ SCH ×2 (17:48→20:15)
[2019-03-13] MEDS: IPRATROPIUM-ALBUTEROL 3 ML NEB INHALATION SCH ×3 (19:41→23:34)
[2019-03-13] MEDS: METOPROLOL TARTRATE 25 MG TAB PO SCH (20:05)
[2019-03-13] MEDS: FAMOTIDINE 20 MG TAB PO SCH (20:06)
[2019-03-13] MEDS: MONTELUKAST 10 MG TAB PO SCH (20:06)
[2019-03-13] MEDS: SACUBITRIL/VALSARTAN 49 MG-51 MG TABLET PO SCH (20:06)
[2019-03-13] MEDS: PRAVASTATIN SODIUM 80 MG TAB PO SCH (20:06)
[2019-03-13 20:10] LABS: Glucose,Whole Blood 148 mg/dL (75-99)
[2019-03-13] MEDS: BUDESONIDE 0.5 MG/2 ML NEBU INHALATION SCH (21:55)
[2019-03-14 03:15] LABS: Glucose,Whole Blood 169 mg/dL (75-99)
[2019-03-14] MEDS: IPRATROPIUM-ALBUTEROL 3 ML NEB INHALATION SCH ×6 (03:42→23:35)
[2019-03-14] MEDS: BUDESONIDE 0.5 MG/2 ML NEBU INHALATION SCH ×2 (07:05→21:15)
[2019-03-14 07:18] LABS: Glucose,Whole Blood 166 mg/dL (75-99)
[2019-03-14] MEDS: METOPROLOL TARTRATE 25 MG TAB PO SCH ×2 (08:21→20:45)
[2019-03-14] MEDS: AZITHROMYCIN 500 MG TAB PO SCH (08:21)
[2019-03-14] MEDS: SACUBITRIL/VALSARTAN 49 MG-51 MG TABLET PO SCH ×2 (08:21→20:46)
[2019-03-14] MEDS: methylPREDNISolone SOD SUCCI 40 MG/ML 1 ML VIAL IV SCH ×3 (08:21→23:40)
[2019-03-14] MEDS: INSULIN ASPART (NovoLOG) 100 UNIT/ML VIAL SQ SCH ×4 (08:22→20:51)
[2019-03-14 09:49] LABS: Basophils # (A) 0.1 k/uL (0-0.2); Basophils % (A) 1 %; Eosinophils % (A) 0 %; HCT 38.2 % (39.0-53.0); HGB 12.3 gm/dL (13.0-17.5); Lymphocytes # (A) 2.2 k/uL (1.0-4.8); Lymphocytes % (A) 20 %; MCH 31.2 pg (25.0-35.0); MCHC 32.1 g/dL (31.0-37.0); MCV 96.9 fL (80.0-100.0); Mean Platelet Volume 8.2; Monocytes # (A) 0.3 k/uL (0-1.0); Monocytes % (A) 2 %; Neutrophils # (A) 8.4 k/uL (1.3-7.7); Neutrophils % (A) 76 %; Platelet Count 215 k/uL (150-450); RBC 3.94 m/uL (4.30-5.90); RDW 14.3 % (11.5-15.5); WBC 10.9 k/uL (3.8-10.6)
[2019-03-14 10:20] LABS: Calcium 8.4 mg/dL (8.4-10.2); Potassium 4.4 mmol/L (3.5-5.1)
[2019-03-14 12:13] LABS: Glucose,Whole Blood 145 mg/dL (75-99)
[2019-03-14] MEDS: ENOXAPARIN 40 MG/0.4 ML SYRINGE SQ SCH (14:11)
[2019-03-14] MEDS: guaiFENesin 600 MG TABLET.ER PO SCH ×2 (14:20→20:44)
[2019-03-14 16:31] LABS: % Iron Saturation 18.93 (15.00-50.00)
[2019-03-14 16:40] LABS: Ferritin 158.7 ng/mL (22.0-322.0); Folate, Serum 9.4 ng/mL
--- NOTE | 2019-03-14 16:42 | CONS ---
CONSULTATION Hermilo Espana is an 88-year-old male who presented to [facility] with increasing shortness of breath for about one week's duration. The patient had been seen in the outpatient setting, was started on steroids, but failed to improve and got worse. He denied any fever or chills and was bringing up some thick phlegm. He subsequently was admitted for further evaluation and management. PAST MEDICAL HISTORY: His past medical history is positive for: 1. Severe allergic asthma. 2. Atrial fibrillation. 3. A component of COPD. 4. Previous CVA or TIA. 5. Diabetes mellitus. 6. Gastroesophageal reflux disease. 7. Coronary artery disease. 8. Previous left hand weakness. 9. Bladder cancer. 10.History of prostate cancer. PREVIOUS SURGERY: History of prostate cancer. History of coronary artery disease with coronary angioplasty in the past. PAST FAMILY HISTORY: Positive for cancer in his mother, who at age 39. Father at 85 of old age. SOCIAL HISTORY: Patient is a former smoker. Does not drink alcohol excessively. MEDICATIONS: His medications prior to admission were: 1. Prednisone. 2. PreserVision. 3. Vitamin. 4. Crestor. 5. Pravachol. 6. Singulair. 7. Lopressor. 8. Lasix. 9. Famotidine. 10.Symbicort. 11.Pulmicort. 12.Ventolin. REVIEW OF SYSTEMS: Noncontributory. PHYSICAL EXAMINATION: Blood pressure is 114/68, respiratory rate of 18, pulse rate of 67, temperature 97.6. Oxygen saturation on room air is 92%. HEENT reveals pupils that are equal. Chest reveals decreased breath sounds, prolonged exhalation, expiratory wheeze. Cardiovascular system is in S1, S2. Abdomen is soft. There is no pedal edema. LABS/IMAGING: White count is 13.2, hemoglobin of 12.8. Sodium 140, potassium 3.7, chloride 102, bicarb 30, BUN 31, creatinine 0.97. Influenza A and B were negative. Chest x-ray done in the ED showed some interstitial prominence and previous pleural- based density which has not changed. IMPRESSION AT THIS TIME: 1. Severe asthma with acute exacerbation. 2. Chronic obstructive pulmonary disease. 3. History of atrial fibrillation. 4. Previous pleural plaques with some interstitial changes which may be related to previous asbestos-related lung disease. At this point in time, would continue the patient on Pulmicort, IV steroids, montelukast, aerosolized steroids and bronchodilators. Would continue azithromycin for now, but we may be able to discontinue it if he does not have a fever and is clinically improving. Keep him on GI and DVT prophylaxis. Depending on how he does, we shall make further changes to his care. He was counseled regarding his condition and this approach. MMNICK / IJN: [id number] /
[2019-03-14 17:26] LABS: Glucose,Whole Blood 125 mg/dL (75-99)
[2019-03-14 20:15] LABS: Glucose,Whole Blood 204 mg/dL (75-99)
--- NOTE | 2019-03-14 20:35 | P.PN ---
Progress Note - Text Progress Note Date: 03/14/19 Interval history: This is a 88-year-old patient of Dr. Norman. Presented with increasing cough s putum shortness of breath and wheezing. Diagnosis of acute COPD exacerbation tracheo-bronchitis. Today-sitting up. Some shortness of breath. Some cough present. Did tolerate some diet. Has been out of bed. Review of systems: Was done for constitutional, cardiovascular, GI, pulmonary. relevant finding as above On examination: VITAL SIGNS: 97.6, 67, 18, 11 4/68, 92% room air GENERAL APPEARANCE: Sitting up in bed, not in distress. HEENT: Normal external appearance of nose and ear. Oral cavity normal EYES: Pupils equal. Conjunctiva normal. NECK: JVD not raised. Mass not palpable. RESPIRATORY: Respiratory effort increased, decreased breath sounds prolonged expiration. CARDIOVASCULAR: First and second sounds normal. No edema. ABDOMEN: Soft. Liver and spleen not palpable. No tenderness. No mass palpable. PSYCHIATRY: Alert and oriented x3. Mood and affect normal. INVESTIGATIONS, reviewed in the clinical context: White count 10.9 hemoglobin 12.3 potassium 4.4 creatinine 0.9 bun Accu-Cheks 171, 145 Assessment: -Acute COPD exacerbation with acute tracheobronchitis in an ex-smoker -Diabetes mellitus type 2 on oral hypoglycemic -GERD -Hyperlipidemia -Essential hypertension -Primary osteoarthritis -Left hand weakness from prior stroke -BPH -Coronary artery disease prior history of stent -Paroxysmal atrial fibrillation -PVCs -Previous pleural blocks some interstitial disease which may be related to previous asbestos-related lung disease as per Dr. Rader He Plan: -Patient to be continued on bronchodilators, IV steroids. Patient also getting steroids. Care was discussed with the patient. Questions were answered.
[2019-03-14] MEDS: MONTELUKAST 10 MG TAB PO SCH (20:46)
[2019-03-14] MEDS: PRAVASTATIN SODIUM 80 MG TAB PO SCH (20:46)
[2019-03-14] MEDS: FAMOTIDINE 20 MG TAB PO SCH (20:51)
[2019-03-15 02:37] LABS: Glucose,Whole Blood 170 mg/dL (75-99)
[2019-03-15] MEDS: IPRATROPIUM-ALBUTEROL 3 ML NEB INHALATION SCH ×3 (03:07→11:00)
[2019-03-15 05:03] VITALS: BP 164/81; TEMP 97.9
[2019-03-15] MEDS: BUDESONIDE 0.5 MG/2 ML NEBU INHALATION SCH (07:07)
[2019-03-15 07:41] LABS: Glucose,Whole Blood 138 mg/dL (75-99)
[2019-03-15] MEDS: methylPREDNISolone SOD SUCCI 40 MG/ML 1 ML VIAL IV SCH (08:22)
[2019-03-15] MEDS: INSULIN ASPART (NovoLOG) 100 UNIT/ML VIAL SQ SCH ×2 (08:22→11:50)
[2019-03-15] MEDS: guaiFENesin 600 MG TABLET.ER PO SCH (08:22)
[2019-03-15] MEDS: AZITHROMYCIN 500 MG TAB PO SCH (08:22)
[2019-03-15] MEDS: ENOXAPARIN 40 MG/0.4 ML SYRINGE SQ SCH (08:23)
[2019-03-15] MEDS: SACUBITRIL/VALSARTAN 49 MG-51 MG TABLET PO SCH (08:23)
[2019-03-15] MEDS: METOPROLOL TARTRATE 25 MG TAB PO SCH (08:23)
[2019-03-15 11:28] VITALS: RESP 18
[2019-03-15 11:31] VITALS: PULSE 84
[2019-03-15 11:46] LABS: Glucose,Whole Blood 125 mg/dL (75-99)
[2019-03-15 14:27] LABS: Hemoglobin A1C 6.1 % (4.0-6.0)
--- NOTE | 2019-03-16 19:34 | P.DS ---
Providers Date of admission: 03/13/19 15:45 Expected date of discharge: 03/15/19 Attending physician: Favio Cabrera Consults: 03/13/19 15:46 Consult Physician Urgent Consulting Provider: Oscar Costello Consult Reason/Comments: COPD, failing o/p treatment Do you want consulting provider notified?: Yes Primary care physician: Seth Norman Hospital Course: Hospital course: This is a 88-year-old patient of Dr. Norman. Presented with increasing cough sputum shortness of breath and wheezing. Diagnosis of acute COPD exacerbation tracheo-bronchitis. responded well to bronchodilators, steroids. Today feeling much better. Breathing much improved. Up and about. Tolerating a diet. Consultation: Dr. Dior guerra On examination: VITAL SIGNS:97.9, 75, 20, 164/81, 93% on 2 L GENERAL APPEARANCE: Sitting up in bed, comfortable HEENT: Normal external appearance of nose and ear. Oral cavity normal EYES: Pupils equal. Conjunctiva normal. NECK: JVD not raised. Mass not palpable. RESPIRATORY: Respiratory effort normal, decreased breath sounds . CARDIOVASCULAR: First and second sounds normal. No edema. ABDOMEN: Soft. Liver and spleen not palpable. No tenderness. No mass palpable. PSYCHIATRY: Alert and oriented x3. Mood and affect normal. INVESTIGATIONS, reviewed in the clinical context: White count 10.9 hemoglobin 12.3 potassium 4.4 creatinine 0.9 bun Accu-Cheks 171, 145 checks x-ray-no acute process. No change in the pleural-based mass from 2017. Hyperinflation. Some interstitial prominence Assessment: -Acute COPD exacerbation with acute tracheobronchitis in an ex-smoker -Diabetes mellitus type 2 on oral hypoglycemic -GERD -Hyperlipidemia -Essential hypertension -Primary osteoarthritis -Left hand weakness from prior stroke -BPH -Coronary artery disease prior history of stent -Paroxysmal atrial fibrillation -PVCs -Previous pleural blocks some interstitial disease which may be related to previous asbestos-related lung disease as per Dr. Dior Merida disposition: Home Patient Condition at Discharge: Stable Plan - Discharge Summary Discharge Rx Participant: No New Discharge Prescriptions: New predniSONE 10 mg PO DAILY #30 tab Continue Montelukast [Singulair] 10 mg PO HS Pravastatin Sodium [Pravachol] 80 mg PO HS Budesonide-Formot 160-4.5 Mcg [Symbicort 160-4.5 Mcg Inhaler] 2 puff INHALATION RT-BID PRN PRN Reason: Shortness Of Breath Vit C/E/Zn/Coppr/Lutein/Zeaxan [Preservision Areds 2 Softgel] 1 cap PO HS Budesonide [Pulmicort] 0.5 mg INHALATION RT-BID Albuterol Nebulized [Ventolin Nebulized] 2.5 mg INHALATION RT-Q4H PRN PRN Reason: Shortness Of Breath Famotidine 40 mg PO HS Furosemide [Lasix] 20 mg PO DAILY PRN PRN Reason: Edema Sacubitril/Valsartan [Entresto 49 mg-51 mg Tablet] 1 tab PO BID Metoprolol Tartrate [Lopressor] 25 mg PO BID predniSONE See Taper PO DAILY Discharge Medication List Budesonide-Formot 160-4.5 Mcg [Symbicort 160-4.5 Mcg Inhaler] 2 puff INHALATION RT-BID PRN 12/09/14 [History] Montelukast [Singulair] 10 mg PO HS 12/09/14 [History] Pravastatin Sodium [Pravachol] 80 mg PO HS 12/09/14 [History] Vit C/E/Zn/Coppr/Lutein/Zeaxan [Preservision Areds 2 Softgel] 1 cap PO HS 11/09/16 [History] Albuterol Nebulized [Ventolin Nebulized] 2.5 mg INHALATION RT-Q4H PRN 03/13/19 [History] Budesonide [Pulmicort] 0.5 mg INHALATION RT-BID 03/13/19 [History] Famotidine 40 mg PO HS 03/13/19 [History] Furosemide [Lasix] 20 mg PO DAILY PRN 03/13/19 [History] Metoprolol Tartrate [Lopressor] 25 mg PO BID 03/13/19 [History] Sacubitril/Valsartan [Entresto 49 mg-51 mg Tablet] 1 tab PO BID 03/13/19 [History] predniSONE See Taper PO DAILY 03/13/19 [History] predniSONE 10 mg PO DAILY #30 tab 03/15/19 [Rx] Follow up Appointment(s)/Referral(s): Seth Norman MD [Primary Care Provider] - 03/19/19 10:45 am Oscar Costello MD [STAFF PHYSICIAN] - 1 Week Patient Instructions/Handouts: COPD (Chronic Obstructive Pulmonary Disease) (DC) Discharge Disposition: HOME SELF-CARE
== END 2019-03-15 13:09 | disposition home or self-care (01) ==
LOC: EC 12:09 → 4MS4W 15:45
PROVIDERS: ADMIT Hospitalist; ATTEND Hospitalist
DX: J44.1 Chronic obstructive pulmonary disease with (acute) exacerbation (principal); J44.0 Chronic obstructive pulmonary disease with (acute) lower respiratory infection; J20.9 Acute bronchitis, unspecified; K21.9 Gastro-esophageal reflux disease without esophagitis; I48.0 Paroxysmal atrial fibrillation; I25.10 Atherosclerotic heart disease of native coronary artery without angina pectoris; I10 Essential (primary) hypertension; E11.9 Type 2 diabetes mellitus without complications; I49.3 Ventricular premature depolarization; R94.4 Abnormal results of kidney function studies; D64.9 Anemia, unspecified; E86.0 Dehydration; J45.901 Unspecified asthma with (acute) exacerbation; M19.91 Primary osteoarthritis, unspecified site; J84.9 Interstitial pulmonary disease, unspecified; H35.30 Unspecified macular degeneration; I69.398 Other sequelae of cerebral infarction; N40.0 Benign prostatic hyperplasia without lower urinary tract symptoms; E78.5 Hyperlipidemia, unspecified; Z79.51 Long term (current) use of inhaled steroids; Z79.52 Long term (current) use of systemic steroids; Z79.899 Other long term (current) drug therapy; I25.2 Old myocardial infarction; Z87.891 Personal history of nicotine dependence; Z85.51 Personal history of malignant neoplasm of bladder; Z95.5 Presence of coronary angioplasty implant and graft; Z98.42 Cataract extraction status, left eye; Z98.41 Cataract extraction status, right eye; Z85.46 Personal history of malignant neoplasm of prostate; Z80.9 Family history of malignant neoplasm, unspecified
CPT/HCPCS: 96376 ×3; 96372 ×2; 96365; 96375; 99284; 36415; 94640 ×6; 94760; 93005; 83880; 80053; 80048; 82607; 82728; 82746; 83540; 83550; 85025 ×2; 87502; 83036; 71046; G0378 ×3; J2920 ×3; J2930; J0456; J1650 ×2; J0696